=== PATIENT | female | born 1930 | race Caucasian/White ===

== ENCOUNTER 2017-06-07 18:43 | Inpatient (IN) | payer MEDICARE, OTHER ==
[2017-06-07] MEDS ORDERED: Levofloxacin/Dextrose 5%-Water 500 MG in Premix Bag 1 BAG IV ONE (21:21)
[2017-06-07] MEDS ORDERED: Sodium Chloride 0.9% 1,000 ML IV ONE (21:29)
--- NOTE | 2017-06-07 21:36 | EDM.PDOC ---
ED HPI GENERAL MEDICAL PROBLEM - General Chief Complaint: General Stated Complaint: AMBULANCE Time Seen by Provider: 06/07/17 19:05 Source of Information: Reports: Patient, EMS History Limitations: Reports: No Limitations - History of Present Illness INITIAL COMMENTS - FREE TEXT/NARRATIVE: ED via [facility]. Patient reports getting back to her chair and missed. Pain to right hip, not any different than chronic pain, notes more weak and shaky today than usual "just not feeling right", chills no fever. Chronic incontinence of stool and urine, hx frequent urinary tract infections. - Related Data Allergies Allergy/AdvReac Type Severity Reaction Status Date / Time meperidine HCl [From Demerol] Allergy Rash Verified 06/07/17 23:29 Home Meds: Home Meds Allopurinol [Zyloprim] 300 mg PO DAILY 05/02/16 [History] Aspirin 81 mg PO DAILY 05/02/16 [History] Cholecalciferol (Vitamin D3) [Vitamin D3] 2,000 unit PO DAILY 05/02/16 [History] Cyanocobalamin (Vitamin B-12) [Vitamin B-12] 100 mcg PO DAILY 05/02/16 [History] Ferrous Sulfate 1 tab PO DAILY 05/02/16 [History] Gabapentin [Neurontin] 200 mg PO BID 05/02/16 [History] Hydrochlorothiazide 25 mg PO ASDIRECTED 05/02/16 [History] Magnesium Oxide [Magnesium] 1 tab PO BID 05/02/16 [History] Multivit-Min/FA/Lycopene/Lut [Sentry Senior Tablet] 1 tab PO DAILY 05/02/16 [ History] Vitamin B Complex [B Complex] 1 tab PO DAILY 05/02/16 [History] amLODIPine Besylate [Amlodipine Besylate] 5 mg PO DAILY 05/02/16 [History] atorvaSTATin Calcium [Atorvastatin Calcium] 20 mg PO BEDTIME 05/02/16 [History] metFORMIN [Glucophage] 500 mg PO BID 05/02/16 [History] Insulin Detemir [Levemir] 15 unit SUBCUT BEDTIME 05/06/16 [History] Insulin Detemir [Levemir] 20 unit SUBCUT DAILY pen 05/06/16 [Rx] Lisinopril [Prinivil] 10 mg PO DAILY tablet 05/06/16 [Rx] Non-Formulary Medication [NF Drug] 0 each TOP ASDIRECTED PRN #0 each 05/06/16 [ Rx] Non-Formulary Medication [NF Drug] 0 each TOP BID each 05/06/16 [Rx] Vancomycin [Vancomycin 50 MG/ML Soln] 125 mg PO QID bottle 05/06/16 [Rx] metroNIDAZOLE 500 mg PO Q8H tablet 05/06/16 [Rx] Cefpodoxime Proxetil 200 mg PO BID #14 tablet 05/13/16 [Rx] Vancomycin [Vancomycin 50 MG/ML Soln] 125 mg PO QID 14 Days bottle 05/13/16 [Rx ] Past Medical History HEENT History: Reports: Impaired Vision Other HEENT History: wear glasses for distance Cardiovascular History: Reports: High Cholesterol, Hypertension Respiratory History: Reports: None Gastrointestinal History: Reports: None Genitourinary History: Reports: Urinary Incontinence, UTI, Recurrent REJOGGER History: Reports: None Musculoskeletal History: Reports: Gout, Osteoarthritis Neurological History: Reports: Neuropathy, Peripheral Psychiatric History: Reports: None Endocrine/Metabolic History: Reports: Diabetes, Type II, Obesity/BMI 30+ Hematologic History: Reports: Iron Deficiency Immunologic History: Reports: None Oncologic (Cancer) History: Reports: None Dermatologic History: Reports: None - Infectious Disease History Infectious Disease History: Reports: Chicken Pox, Measles, Mumps - Past Surgical History Head Surgeries/Procedures: Reports: None Social & Family History - Family History Family Medical History: Noncontributory - Tobacco Use Smoking Status *Q: Never Smoker Used Tobacco, but Quit: No Second Hand Smoke Exposure: No - Caffeine Use Caffeine Use: Reports: Coffee, Soda - Recreational Drug Use Recreational Drug Use: No ED ROS GENERAL - Review of Systems Review Of Systems: See Below Constitutional: Reports: Chills, Weakness, Decreased Appetite HEENT: Reports: No Symptoms Respiratory: Reports: Cough (ocassional dry) Cardiovascular: Reports: No Symptoms Endocrine: Reports: Fatigue GI/Abdominal: Reports: Diarrhea, Other (incontinent urine and stool, chronic. hx c-diff). Denies: Abdominal Pain : Reports: Incontinence. Denies: Flank Pain Musculoskeletal: Reports: Joint Pain (chronic) Skin: Reports: No Symptoms Neurological: Reports: No Symptoms Psychiatric: Reports: No Symptoms ED EXAM, GENERAL - Physical Exam Exam: See Below Exam Limited By: No Limitations General Appearance: Alert, Mild Distress Eye Exam: Bilateral Eye: EOMI, PERRL Ears: Normal External Exam Ear Exam: Bilateral Ear: TM normal Nose: Normal Inspection Throat/Mouth: Normal Inspection Head: Atraumatic, Normocephalic Neck: Normal Inspection Respiratory/Chest: No Respiratory Distress Cardiovascular: Normal Peripheral Pulses, Regular Rate, Rhythm GI/Abdominal: Normal Bowel Sounds, Soft, Non-Tender (Female) Exam: Other (rayo area red) Back Exam: Normal Inspection Extremities: Leg Pain (left above knee with palpation unchanged, good flexion extension. right hip with palpation, internal external roation without discomfort. ). No: Pallor, Redness Neurological: Alert Psychiatric: Normal Affect, Normal Mood Skin Exam: Warm, Dry, Intact, Normal Color Course - Vital Signs Last Recorded V/S: Last Vital Signs Temp 98.6 F 06/08/17 06:56 Pulse 87 06/08/17 06:56 Resp 20 06/08/17 06:56 BP 129/58 L 06/08/17 06:56 Pulse Ox 97 06/08/17 06:56 - Orders/Labs/Meds Orders: Active Orders 24 hr Category Date Time Status Glucose [Blood Glucose Check, Bedside] [RC] ONETIME Care 06/07/17 19:39 Active CULTURE BLOOD [BC] Stat Lab 06/07/17 19:58 Results Sodium Chloride 0.9% [Normal Saline] 1,000 ml Med 06/07/17 21:29 Active IV ONETIME Medication Orders Allopurinol (Zyloprim) 300 mg PO DAILY [facility] Amlodipine Besylate (Norvasc) 5 mg PO DAILY [facility] Aspirin (Aspirin) 81 mg PO DAILY [facility] Atorvastatin Calcium (Lipitor) 20 mg PO BEDTIME [facility] Cholecalciferol (Vitamin D3) 2,000 units PO DAILY [facility] Cyanocobalamin (Vitamin B12) 100 mcg PO DAILY [facility] Ferrous Sulfate (Ferrous Sulfate) 325 mg PO DAILY [facility] Gabapentin (Neurontin) 200 mg PO BID [facility] Heparin Sodium (Porcine) (Heparin Sodium) 5,000 units SUBCUT Q8HR [facility] Last Admin: 06/08/17 05:34 Dose: 5,000 units Hydrochlorothiazide (Hydrochlorothiazide) 25 mg PO ASDIRECTED [facility] Sodium Chloride (Normal Saline) 1,000 mls @ 75 mls/hr IV ONETIME ONE Stop: 06/08/17 10:48 Last Admin: 06/07/17 21:37 Dose: 75 mls/hr Insulin Aspart (Novolog) 0 unit SUBCUT QID STEPHANIE PRN Reason: Protocol Insulin Detemir (Levemir) 15 unit SUBCUT BEDTIME STEPHANIE Insulin Detemir (Levemir) 20 unit SUBCUT DAILY STEPHANIE Lisinopril (Prinivil) 10 mg PO DAILY STEPHANIE Magnesium Oxide (Magnesium Oxide) 375 mg PO BID STEPHANIE Multivitamins (Thera) 1 each PO DAILY [facility] Non-Formulary Medication (Cefpodoxime Proxetil) 200 mg PO BID STEPHANIE Nystatin/Triamcinolone Acetonide (Mycolog Oint) 1 gm TOP BID [facility] Ondansetron HCl (Zofran Odt) 4 mg PO Q6H PRN PRN Reason: nausea, able to take PO Labs: Laboratory Tests 06/07/17 06/07/17 06/07/17 Range/Units 19:28 19:58 19:58 WBC 10.6 H (5.0-10.0) 10^3/uL RBC 3.75 L (4.2-5.4) 10^6/uL Hgb 10.5 L (12.0-16.0) g/dL Hct 32.9 L (37.0-47.0) % MCV 87.7 D (80-100) fL MCH 28.0 (27.0-34.0) pg MCHC 31.9 L (33.0-35.0) g/dL Plt Count 280 D (150-450) 10^3/uL Neut % (Auto) 70.5 (42.2-75.2) % Lymph % (Auto) 22.8 (20.5-50.1) % [place] % (Auto) 6.3 (2-8) % Eos % (Auto) 0.2 L (1.0-3.0) % Baso % (Auto) 0.2 (0.0-1.0) % Sodium 130 L (135-145) mmol/L Potassium 4.6 (3.6-5.0) mmol/L Chloride 95 L (101-111) mmol/L Carbon Dioxide 24.0 (21.0-31.0) mmol/L Anion Gap 15.6 BUN 39 H (7-18) mg/dL Creatinine 1.4 H (0.6-1.3) mg/dL Est Cr Clr Drug Dosing 26.50 mL/min Estimated GFR (MDRD) 36 BUN/Creatinine Ratio 27.85 Glucose 176 H (74-105) mg/dL POC Glucose (83-110) mg/dl Lactic Acid (0.5-2.2) mmol/L Calcium 10.3 H (8.4-10.2) mg/dl Magnesium 1.6 L (1.8-2.5) mg/dL Total Bilirubin 1.0 (0.2-1.0) mg/dL AST 61 H (10-42) IU/L ALT 42 (10-60) IU/L Alkaline Phosphatase 91 (42-121) IU/L Troponin I 0.02 (0.00-0.02) ng/ml B-Natriuretic Peptide 132 H (0-100) pg/ml Total Protein 7.6 (6.7-8.2) g/dl Albumin 3.4 (3.2-5.5) g/dl Globulin 4.2 Albumin/Globulin Ratio 0.81 Urine Color Light yellow (YELLOW) Urine Appearance Turbid (CLEAR) Urine pH 6.0 (5.0-9.0) Ur Specific [place] 1.015 (1.005-1.030) Urine Protein 100 H (NEGATIVE) Urine Glucose (UA) Negative (NEGATIVE) Urine Ketones Negative (NEGATIVE) Urine Occult Blood Moderate H (NEGATIVE) Urine Nitrite Negative (NEGATIVE) Urine Bilirubin Negative (NEGATIVE) Urine Urobilinogen 0.2 (0.2-1.0) mg/dL Ur Leukocyte Esterase Moderate H (NEGATIVE) Urine RBC 50-75 H /HPF Urine WBC Semi-packed H (0-5/HPF) /HPF Ur Epithelial Cells Moderate H /HPF Amorphous Sediment Few (0/HPF) /HPF Urine Bacteria Many H (0-FEW/HPF) /HPF Urine Mucus Moderate H /LPF 06/07/17 06/07/17 Range/Units 19:58 19:58 WBC (5.0-10.0) 10^3/uL RBC (4.2-5.4) 10^6/uL Hgb (12.0-16.0) g/dL Hct (37.0-47.0) % MCV (80-100) fL MCH (27.0-34.0) pg MCHC (33.0-35.0) g/dL Plt Count (150-450) 10^3/uL Neut % (Auto) (42.2-75.2) % Lymph % (Auto) (20.5-50.1) % [place] % (Auto) (2-8) % Eos % (Auto) (1.0-3.0) % Baso % (Auto) (0.0-1.0) % Sodium (135-145) mmol/L Potassium (3.6-5.0) mmol/L Chloride (101-111) mmol/L Carbon Dioxide (21.0-31.0) mmol/L Anion Gap BUN (7-18) mg/dL Creatinine (0.6-1.3) mg/dL Est Cr Clr Drug Dosing mL/min Estimated GFR (MDRD) BUN/Creatinine Ratio Glucose (74-105) mg/dL POC Glucose 160 H (83-110) mg/dl Lactic Acid 1.2 (0.5-2.2) mmol/L Calcium (8.4-10.2) mg/dl Magnesium (1.8-2.5) mg/dL Total Bilirubin (0.2-1.0) mg/dL AST (10-42) IU/L ALT (10-60) IU/L Alkaline Phosphatase (42-121) IU/L Troponin I (0.00-0.02) ng/ml B-Natriuretic Peptide (0-100) pg/ml Total Protein (6.7-8.2) g/dl Albumin (3.2-5.5) g/dl Globulin Albumin/Globulin Ratio Urine Color (YELLOW) Urine Appearance (CLEAR) Urine pH (5.0-9.0) Ur Specific [place] (1.005-1.030) Urine Protein (NEGATIVE) Urine Glucose (UA) (NEGATIVE) Urine Ketones (NEGATIVE) Urine Occult Blood (NEGATIVE) Urine Nitrite (NEGATIVE) Urine Bilirubin (NEGATIVE) Urine Urobilinogen (0.2-1.0) mg/dL Ur Leukocyte Esterase (NEGATIVE) Urine RBC /HPF Urine WBC (0-5/HPF) /HPF Ur Epithelial Cells /HPF Amorphous Sediment (0/HPF) /HPF Urine Bacteria (0-FEW/HPF) /HPF Urine Mucus /LPF Meds: Medications Generic Name Dose Route Start Last Admin Trade Name Freq PRN Reason Stop Dose Admin Allopurinol 300 mg 06/08/17 09:00 Zyloprim PO DAILY STEPHANIE Amlodipine Besylate 5 mg 06/08/17 09:00 Norvasc PO DAILY [facility] Aspirin 81 mg 06/08/17 09:00 Aspirin PO DAILY [facility] Atorvastatin Calcium 20 mg 06/08/17 21:00 Lipitor PO BEDTIME [facility] Cholecalciferol 2,000 units 06/08/17 09:00 Vitamin D3 PO DAILY [facility] Cyanocobalamin 100 mcg 06/08/17 09:00 Vitamin B12 PO DAILY [facility] Ferrous Sulfate 325 mg 06/08/17 09:00 Ferrous Sulfate PO DAILY [facility] Gabapentin 200 mg 06/08/17 09:00 Neurontin PO BID [facility] Heparin Sodium (Porcine) 5,000 units 06/08/17 06:00 06/08/17 05:34 Heparin Sodium SUBCUT 5,000 units Q8HR [facility] Administration Hydrochlorothiazide 25 mg 06/08/17 00:15 Hydrochlorothiazide PO ASDIRECTED [facility] Sodium Chloride 1,000 mls @ 75 mls/hr 06/07/17 21:29 06/07/17 21:37 Normal Saline IV 06/08/17 10:48 75 mls/hr ONETIME ONE Administration Insulin Aspart 0 unit 06/08/17 09:00 Novolog SUBCUT QID [facility] Protocol Insulin Detemir 15 unit 06/08/17 21:00 Levemir SUBCUT BEDTIME [facility] Insulin Detemir 20 unit 06/08/17 09:00 Levemir SUBCUT DAILY [facility] Lisinopril 10 mg 06/08/17 09:00 Prinivil PO DAILY [facility] Magnesium Oxide 375 mg 06/08/17 09:00 Magnesium Oxide PO BID [facility] Multivitamins 1 each 06/08/17 09:00 Thera PO DAILY [facility] Non-Formulary Medication 200 mg 06/08/17 09:00 Cefpodoxime Proxetil PO BID [facility] Nystatin/Triamcinolone Acetonide 1 gm 06/08/17 09:00 Mycolog Oint TOP BID [facility] Ondansetron HCl 4 mg 06/07/17 23:55 Zofran Odt PO Q6H PRN nausea, able to take PO Discontinued Medications Generic Name Dose Route Start Last Admin Trade Name Freq PRN Reason Stop Dose Admin Levofloxacin/Dextrose 500 mg/ 100 mls @ 100 mls/hr 06/07/17 21:21 06/07/17 21 :38 Premix IV 06/07/17 22:20 100 mls/hr ONETIME ONE Administration - Re-Assessments/Exams Free Text/Narrative Re-Assessment/Exam: 06/07/17 21:[address] Qiu, Will admit, UTI, Diabetic, recent fall at home Departure - Departure Time of Disposition: 05:00 Disposition: Admitted As Inpatient 65 Condition: Fair Clinical Impression: Hyponatremia, Hx of Clostridium difficile infection UTI (urinary tract infection) Qualifiers: Urinary tract infection type: site unspecified Hematuria presence: without hematuria Qualified Code(s): N39.0 - Urinary tract infection, site not specified Diabetes Qualifiers: Diabetes mellitus type: type 2 Diabetes mellitus complication status: without complication Diabetes mellitus intermediate frame tender insulin use: with custodial use Qualified Code(s): E11.9 - Type 2 diabetes mellitus without complications - Discharge Information - My Orders Last 24 Hours: My Active Orders 06/07/17 19:39 Glucose [Blood Glucose Check, Bedside] [RC] ONETIME 06/07/17 19:58 CULTURE BLOOD [BC] Stat 06/07/17 21:29 Sodium Chloride 0.9% [Normal Saline] 1,000 ml IV ONETIME - Assessment/Plan Last 24 Hours: My Active Orders 06/07/17 19:39 Glucose [Blood Glucose Check, Bedside] [RC] ONETIME 06/07/17 19:58 CULTURE BLOOD [BC] Stat 06/07/17 21:29 Sodium Chloride 0.9% [Normal Saline] 1,000 ml IV ONETIME
[2017-06-07] MEDS ORDERED: Ondansetron 4 MG Tab.DIS PO PRN (23:55)
--- NOTE | 2017-06-08 04:33 | HP ---
CHIEF COMPLAINT: Increasing weakness, tiredness, chills, and rigors. HISTORY OF PRESENTING ILLNESS: Mrs. Caty Lopez is an 86-year-old female with medical history significant for hypertension, hyperlipidemia, type 2 diabetes mellitus, incontinence to urine and stool these days, history of diverticulosis of the colon, diabetes complicated by neuropathy, B12 deficiency, recurrent urinary tract infections, and C. difficile colitis in the past, who presented to the ER with complaints of having a fall at home, and further evaluation showed evidence of urinary tract infection needing admission to the hospital. At this time, the patient claims that she has been having this chills and rigors for the last 2 to 3 days, and earlier this evening, the patient felt very weak and tired and also with chills, and she was at the table while she was trying to sit down. She slipped and gradually sat on the ground and called for help. Her was there along with her and helped her up. At this time, she denies any complaints of chest pain. No shortness of breath. No abdominal pain. No nausea. No vomiting. No diarrhea. No headache. No changes in the vision. No numbness or tingling to her extremities. She denies any increasing weakness to her extremities, but complains of having chills and rigors in the last 2 to 3 days. The patient denied any history of chest pains on exertion. Has mild dyspnea on exertion. No history of orthopnea or paroxysmal nocturnal dyspnea. The patient denied any history of hematemesis, hematochezia, or melanotic stools. Normal bowel and bladder habits otherwise. REVIEW OF SYSTEMS: A complete review of systems including skin, ears, nose, and throat, cardiovascular system, respiratory system, gastrointestinal system, genitourinary system, endocrinology, rheumatology, allergy, immunology, and constitutional were all evaluated and were negative except for the above-said notes. PAST MEDICAL HISTORY: Significant for hypertension, hyperlipidemia, type 2 diabetes mellitus, diabetes complicated by neuropathy, obesity, recurrent urinary tract infections, incontinence to stool and urine, C. difficile colitis, colonic diverticulosis, B12 deficiency, and neurogenic bladder. PAST SURGICAL HISTORY: Significant for colonoscopy and bladder cystoscopy. FAMILY HISTORY: None significant. SOCIAL HISTORY: History of smoking tobacco in the past, but quit smoking back in 1969. No history of alcohol intake. ALLERGIC HISTORY: The patient noted to have allergies to Demerol, which causes rash. MEDICATIONS: Include: 1. Levemir 15 units. 2. Nystatin cream. 3. Allopurinol 300 mg tablet daily. 4. Hydrochlorothiazide 25 mg daily. 5. Norvasc 5 mg daily. 6. Lisinopril 10 mg daily. 7. Metformin 500 mg 2 times daily. 8. B-Complex. 9. Multivitamin. 10.Ferrous sulfate 325 mg. 11.Aspirin 81 mg daily. PHYSICAL EXAMINATION: Vital Signs: Temperature of 97.8, pulse of 106, blood pressure 127/47, respiratory rate of 16, and saturating at 96% on room air. General Appearance: The patient is well oriented to time, place, and person. Follows commands spontaneously. Cardiovascular System: S1 and S2 heard with normal intensity. No gallops. Respiratory System: Clear to auscultation bilaterally. No wheeze. No crepitations. Abdomen: Soft. Bowel sounds positive. Nontender. No rigidity. Extremities: No edema in bilateral lower extremities. Neurologic: No gross focal neurological deficit. LABORATORY DATA: WBC 10.6, hemoglobin 10.5, hematocrit 32.9, and platelet count 280. Sodium 130, potassium 4.6, chloride 95, bicarb 24, BUN 39, creatinine 1.4, and glucose 176. Lactic acid 1.2. Calcium 10.3. Magnesium 1.6. AST 61 and ALT 42. BNP 132. Urinalysis: Moderate leukocyte esterase, negative for nitrites, moderate rbc 50 to 75, moderate epithelial cells, and many bacteria. ASSESSMENT: 1. Possible urinary tract infection. 2. Hypertension. 3. Type 2 diabetes mellitus. 4. Presyncopal episode. 5. Urinary incontinence and stool incontinence. 6. History of Clostridium difficile colitis in the past. 7. B12 deficiency. 8. Hyponatremia. 9. Hypercalcemia. 10.Hypomagnesemia. PLAN: 1. Urinary tract infection. The patient presents with chills and rigors for the last 3 days and had a presyncopal episode without any loss of consciousness. Urinalysis is suggestive of possible UTI. We will obtain the urine culture and blood culture. At this time, we will start her on IV antibiotics. She is started on IV Levaquin in the ER. We will continue the same and titrate the antibiotics once we have the culture reports available. 2. Acute hyponatremia. The patient's sodium is down to 130. We will have her on IV normal saline at 75 mL/h. Recheck a basic metabolic panel in a.m. 3. Hypercalcemia. The patient's calcium is noted to be at 10.3. Recheck a calcium level in a.m. and an ionized calcium level in a.m. 4. Hypomagnesemia. We will replace with oral magnesium. 5. Type 2 diabetes mellitus. The patient noted to be on insulin regimen. Check her fingersticks with each meals. Have her on supplemental scale insulin. Avoid any hypoglycemic episodes. Have her on hypoglycemic protocol. 6. Hypertension. The patient's blood pressure seems to be in acceptable range. Continue with current antihypertensive medications. We will closely follow. Try to avoid any hypotensive episodes. 7. Deep vein thrombosis prophylaxis. We will have her on heparin 5000 units subcutaneously q.8 hourly for DVT prophylaxis. 8. Code status: The patient wants to be full code. Discussed with ER physician regarding the plan of care. Discussed with the patient regarding the plan of care. Reviewed the labs and medications. Reviewed the old charts. [facility] /[id number] MTDPatricia
[2017-06-08] MEDS: Heparin Sodium 5,000 Units/ML Vial SUBCUT SCH ×3 (05:34→22:13)
[2017-06-08] MEDS: Cholecalciferol (Vitamin D3) 400 Unit Tab PO SCH (08:41)
[2017-06-08] MEDS: Multivitamins,Therapeutic Tab PO SCH (08:41)
[2017-06-08] MEDS: amLODIPine 5 MG Tab PO SCH (08:41)
[2017-06-08] MEDS: Cyanocobalamin (Vitamin B12) 100 MCG Tab PO SCH (08:41)
[2017-06-08] MEDS: Ferrous Sulfate 325 MG Tab PO SCH (08:42)
[2017-06-08] MEDS: Insulin Aspart 100 Units/ML 3 ML Pen SUBCUT SCH ×4 (08:42→21:19)
[2017-06-08] MEDS: Gabapentin 100 MG Cap PO SCH ×2 (08:42→20:26)
[2017-06-08] MEDS: Aspirin 81 MG Tab.Chew PO SCH (08:42)
[2017-06-08] MEDS: Lisinopril 10 MG Tab PO SCH (08:42)
[2017-06-08] MEDS: Insulin Detemir 100 Units/ML 3 ML Pen SUBCUT SCH ×2 (08:43→21:18)
[2017-06-08] MEDS: Allopurinol 300 MG Tab PO SCH (08:47)
[2017-06-08] MEDS ORDERED: CEFPODOXIME PROXETIL 200 MG PO SCH (09:00)
[2017-06-08] MEDS: [UNRECOGNIZED DRUG - REMARK] TOP SCH ×2 (12:07→20:21)
--- NOTE | 2017-06-08 13:31 | PN ---
DATE: 06/08/2017 HISTORY OF PRESENT ILLNESS: Mrs. Jessica Loomis is an 86-year-old female with medical history significant for hypertension, type 2 diabetes mellitus, incontinence to urine and stool, history of diverticulosis, C. difficile colitis in the past, recurrent urinary tract infection, was admitted to the hospital after having a fall and complaints of chills and rigors in the last few days and had evidence of urinary tract infection. For the last 24 hours, the patient was treated with IV fluids. IV antibiotics. She denies any further chills or fevers at this time. She denies any chest pain. No shortness of breath. No abdominal pain. No nausea. No vomiting. No diarrhea. REVIEW OF SYSTEMS: Cardiovascular, respiratory, gastrointestinal, neurology, constitutional were all evaluated. PHYSICAL EXAMINATION: Vital Signs: Temperature of 97.2, pulse of 67, blood pressure of 129/58, respiratory rate of 20, saturating at 97% on room air. General Appearance: The patient is well oriented to time, place, and person. Follows commands spontaneously. Cardiovascular System: S1, S2 heard with normal intensity. No gallops. Respiratory System: Clear to auscultation bilaterally. No wheeze. No crepitations. Abdomen: Soft. Bowel sounds positive. Nontender. No rigidity. Extremities: No edema in bilateral lower extremities. Neurology: No gross focal neurological deficit. MEDICATIONS: Reviewed. 1. Continue with allopurinol 300 mg daily. 2. Norvasc 5 mg daily. 3. Aspirin 81 mg daily. 4. Lipitor 20 mg at bedtime. 5. Vitamin D3 2000 units daily. 6. Vitamin B12 100 mcg daily. 7. Ferrous sulfate 325 mg daily. 8. Neurontin 200 mg twice a day. 9. Heparin 5000 units subcutaneously q.8 hourly. 10.Hydrochlorothiazide 25 mg every 48 hours. 11.Levemir 20 units in a.m. and 15 units at bedtime. 12.Lisinopril 10 mg daily. 13.Milk of magnesia 375 mg twice a day. 14.Multivitamin 1 tablet daily. 15.Zofran 4 mg every 6 hours as needed. LABORATORY DATA: Reviewed. WBC 9.5, hemoglobin 9.8, hematocrit 31.2, platelet count 282. Sodium 132, potassium 3.9, chloride 100, bicarb 22, BUN 34, creatinine 1.2, glucose 187. ASSESSMENT: 1. Urinary tract infection. 2. Generalized debility. 3. Hypertension. 4. Type 2 diabetes mellitus. 5. Presyncopal episode. 6. History of chronic urinary incontinence and stool incontinence with neurogenic bladder. 7. Diabetes, complicated by neuropathy. 8. History of Clostridium difficile colitis in the past. 9. Hyponatremia. PLAN: 1. Urinary tract infection. The patient was admitted with urinary tract infection and still awaiting for culture reports. The patient did receive IV Levaquin. We will resume IV Levaquin at this time and we will titrate the antibiotics once we have the culture reports available. 2. Acute hyponatremia. The patient was noted to have low sodium at 130 at the time of admission, improved to 132 with IV normal saline. We will closely follow. 3. Type 2 diabetes mellitus. Check her fingersticks with each meals, have her on supplemental scale insulin as needed for additional coverage of her blood glucose, try to avoid any hypoglycemic episodes. 4. Hypomagnesium. The patient is currently on magnesium oxide. Continue the same. We will check a magnesium in a.m. 5. Hypercalcemia. The patient was noted to have elevated calcium up to 10.3 at the time of admission, improved with IV hydration to 9.8. 6. Deep venous thrombosis prophylaxis. Continue with heparin for deep venous thrombosis prophylaxis. 7. Hypertension. The patient's blood pressure seems to be well controlled. Continue with current antihypertensive medications. 8. We will have Physical Therapy and Occupational Therapy to evaluate and treat the patient secondary to generalized debility. [facility] /[id number]
[2017-06-08] MEDS: Levofloxacin/Dextrose 5%-Water 250 MG in Premix Bag 1 BAG IV SCH (20:21)
[2017-06-08] MEDS: atorvaSTATin 20 MG Tab PO SCH (20:27)
[2017-06-09] MEDS: Heparin Sodium 5,000 Units/ML Vial SUBCUT SCH ×3 (05:47→22:11)
[2017-06-09] MEDS: Lisinopril 10 MG Tab PO SCH (09:33)
[2017-06-09] MEDS: Cholecalciferol (Vitamin D3) 400 Unit Tab PO SCH (09:33)
[2017-06-09] MEDS: Gabapentin 100 MG Cap PO SCH ×2 (09:33→20:19)
[2017-06-09] MEDS: Ferrous Sulfate 325 MG Tab PO SCH (09:33)
[2017-06-09] MEDS: Cyanocobalamin (Vitamin B12) 100 MCG Tab PO SCH (09:33)
[2017-06-09] MEDS: amLODIPine 5 MG Tab PO SCH (09:33)
[2017-06-09] MEDS: Multivitamins,Therapeutic Tab PO SCH (09:34)
[2017-06-09] MEDS: Aspirin 81 MG Tab.Chew PO SCH (09:34)
[2017-06-09] MEDS: Allopurinol 300 MG Tab PO SCH (09:34)
[2017-06-09] MEDS: Insulin Detemir 100 Units/ML 3 ML Pen SUBCUT SCH ×2 (09:34→21:18)
[2017-06-09] MEDS: Insulin Aspart 100 Units/ML 3 ML Pen SUBCUT SCH ×4 (09:35→21:19)
[2017-06-09] MEDS: [UNRECOGNIZED DRUG - REMARK] TOP SCH ×2 (09:36→21:18)
[2017-06-09] MEDS: Hydrochlorothiazide 25 MG Tab PO SCH (09:40)
--- NOTE | 2017-06-09 10:47 | PCM.PN ---
- General Info Date of Service: 06/09/17 Admission Dx/Problem (Free Text): Complicated UTI Subjective Update: Patient stated that she is feeling better. She is still generally weak but better. She denies nausea, vomiting, chest pain, shortness breath, abdominal pain, dysuria, urinary frequency. Patient had blood in her urine today. Patient stated that she has been having this issue for the last few years. She states she gets blood in her urine almost every other month. She has been following up on that with her primary care provider and saw enterprise software engineer 2 weeks ago. She told me that her primary care provider Will refer her to see urologist after being discharged. Patient declined genital and rectal exam. She denies in the stool or black stool. - Review of Systems General: Reports: No Symptoms HEENT: Reports: No Symptoms Pulmonary: Reports: No Symptoms Cardiovascular: Reports: No Symptoms - Patient Data Vitals - Most Recent: Last Vital Signs Temp 36.3 C 06/09/17 07:28 Pulse 72 06/09/17 07:28 Resp 20 06/09/17 07:28 BP 119/50 L 06/09/17 09:33 Pulse Ox 96 06/09/17 07:28 Weight - Most Recent: 80.853 kg I&O - Last 24 Hours: Intake & Output 06/08/17 06/09/17 06/09/17 22:59 06:59 14:59 Intake Total 200 175 Balance 200 175 Lab Results Last 24 Hours: Laboratory Results - last 24 hr 06/08/17 06/08/17 06/08/17 Range/Units 10:50 17:11 21:01 WBC (5.0-10.0) 10^3/uL RBC (4.2-5.4) 10^6/uL Hgb (12.0-16.0) g/dL Hct (37.0-47.0) % MCV (80-100) fL MCH (27.0-34.0) pg MCHC (33.0-35.0) g/dL Plt Count (150-450) 10^3/uL Sodium (135-145) mmol/L Potassium (3.6-5.0) mmol/L Chloride (101-111) mmol/L Carbon Dioxide (21.0-31.0) mmol/L Anion Gap BUN (7-18) mg/dL Creatinine (0.6-1.3) mg/dL Est Cr Clr Drug Dosing mL/min Estimated GFR (MDRD) Glucose (74-105) mg/dL POC Glucose 260 H 205 H 211 H (83-110) mg/dl Calcium (8.4-10.2) mg/dl 06/09/17 06/09/17 06/09/17 Range/Units 01:40 06:34 06:34 WBC 9.4 (5.0-10.0) 10^3/uL RBC 3.43 L (4.2-5.4) 10^6/uL Hgb 9.4 L (12.0-16.0) g/dL Hct 30.2 L (37.0-47.0) % MCV 88.0 (80-100) fL MCH 27.4 (27.0-34.0) pg MCHC 31.1 L (33.0-35.0) g/dL Plt Count 267 (150-450) 10^3/uL Sodium 132 L (135-145) mmol/L Potassium 3.9 (3.6-5.0) mmol/L Chloride 101 (101-111) mmol/L Carbon Dioxide 22.0 (21.0-31.0) mmol/L Anion Gap 12.9 BUN 30 H (7-18) mg/dL Creatinine 1.2 (0.6-1.3) mg/dL Est Cr Clr Drug Dosing 30.92 mL/min Estimated GFR (MDRD) 42 Glucose 240 H (74-105) mg/dL POC Glucose 246 H (83-110) mg/dl Calcium 9.6 (8.4-10.2) mg/dl Amadou Results Last 24 Hours: Microbiology 06/08/17 00:01 Urine Culture - Preliminary Urine, Voided Med Orders - Current: Current Medications Allopurinol (Zyloprim) 300 mg PO DAILY [facility] Last Admin: 06/09/17 09:34 Dose: 300 mg Amlodipine Besylate (Norvasc) 5 mg PO DAILY [facility] Last Admin: 06/09/17 09:33 Dose: 5 mg Aspirin (Aspirin) 81 mg PO DAILY [facility] Last Admin: 06/09/17 09:34 Dose: 81 mg Atorvastatin Calcium (Lipitor) 20 mg PO BEDTIME [facility] Last Admin: 06/08/17 20:27 Dose: 20 mg Cholecalciferol (Vitamin D3) 2,000 units PO DAILY [facility] Last Admin: 06/09/17 09:33 Dose: 2,000 units Cyanocobalamin (Vitamin B12) 100 mcg PO DAILY [facility] Last Admin: 06/09/17 09:33 Dose: 100 mcg Ferrous Sulfate (Ferrous Sulfate) 325 mg PO DAILY [facility] Last Admin: 06/09/17 09:33 Dose: 325 mg Gabapentin (Neurontin) 200 mg PO BID [facility] Last Admin: 06/09/17 09:33 Dose: 200 mg Heparin Sodium (Porcine) (Heparin Sodium) 5,000 units SUBCUT Q8HR [facility] Last Admin: 06/09/17 05:47 Dose: 5,000 units Hydrochlorothiazide (Hydrochlorothiazide) 25 mg PO Q48H [facility] Last Admin: 06/09/17 09:40 Dose: 25 mg Levofloxacin/Dextrose 250 mg/ (Premix) 50 mls @ 50 mls/hr IV Q24H [facility] Last Admin: 06/08/17 20:21 Dose: 50 mls/hr Insulin Aspart (Novolog) 0 unit SUBCUT QID [facility] PRN Reason: Protocol Last Admin: 06/09/17 09:35 Dose: 2 unit Insulin Detemir (Levemir) 15 unit SUBCUT BEDTIME [facility] Last Admin: 06/08/17 21:18 Dose: 15 units Insulin Detemir (Levemir) 20 unit SUBCUT DAILY [facility] Last Admin: 06/09/17 09:34 Dose: 20 units Lisinopril (Prinivil) 10 mg PO DAILY [facility] Last Admin: 06/09/17 09:33 Dose: 10 mg Magnesium Oxide (Magnesium Oxide) 375 mg PO BID [facility] Last Admin: 06/09/17 09:34 Dose: 375 mg Multivitamins (Thera) 1 each PO DAILY [facility] Last Admin: 06/09/17 09:34 Dose: 1 each Nystatin/Zinc Oxide/Hydrocerin Compound* *Non-Form Med 0 each TOP BID [facility] Last Admin: 06/09/17 09:36 Dose: 1 each Ondansetron HCl (Zofran Odt) 4 mg PO Q6H PRN PRN Reason: nausea, able to take PO Discontinued Medications Levofloxacin/Dextrose 500 mg/ (Premix) 100 mls @ 100 mls/hr IV ONETIME ONE Stop: 06/07/17 22:20 Last Admin: 06/07/17 21:38 Dose: 100 mls/hr Sodium Chloride (Normal Saline) 1,000 mls @ 75 mls/hr IV ONETIME ONE Stop: 06/08/17 10:48 Last Admin: 06/07/17 21:37 Dose: 75 mls/hr Non-Formulary Medication (Cefpodoxime Proxetil) 200 mg PO BID [facility] Last Admin: 06/08/17 16:14 Dose: Not Given Nystatin/Triamcinolone Acetonide (Mycolog Oint) 1 gm TOP BID [facility] Last Admin: 06/08/17 08:47 Dose: 1 applic - Problem List & Annotations (1) Hematuria SNOMED Code(s): 11398578 Code(s): R31.9 - HEMATURIA, UNSPECIFIED Status: Acute Current Visit: Yes (2) UTI (urinary tract infection) SNOMED Code(s): 04861040 Code(s): N39.0 - URINARY TRACT INFECTION, SITE NOT SPECIFIED Status: Acute Priority: Medium Current Visit: Yes Qualifiers: Urinary tract infection type: site unspecified Hematuria presence: without hematuria Qualified Code(s): N39.0 - Urinary tract infection, site not specified (3) Diabetes SNOMED Code(s): 48256943 Code(s): E11.9 - TYPE 2 DIABETES MELLITUS WITHOUT COMPLICATIONS Status: Chronic Priority: Low Current Visit: Yes Qualifiers: Diabetes mellitus type: type 2 Diabetes mellitus complication status: without complication Diabetes mellitus snf insulin use: with ferry terminal supervisor use Qualified Code(s): E11.9 - Type 2 diabetes mellitus without complications ; Z79.4 - alf (current) use of insulin; Z79.4 - alf (current) use of insulin; Z79.4 - alf (current) use of insulin; Z79.4 - tank terminal gauger ( current) use of insulin (4) Bacteremia SNOMED Code(s): 7953568 Code(s): R78.81 - BACTEREMIA Status: Acute Priority: Medium Current Visit: No (5) Weakness SNOMED Code(s): 36277192 Code(s): R53.1 - WEAKNESS Status: Acute Priority: High Current Visit: No - Problem List Review Problem List Initiated/Reviewed/Updated: Yes - My Orders Last 24 Hours: My Active Orders 06/10/17 05:11 BASIC METABOLIC PANEL,BMP [CHEM] AM CBC WITH AUTO DIFF [HEME] AM - Plan Plan:: Impression Next 2-year-old female with the history of chronic incontinence presented with generalized weakness and diagnosed was completed UTI. Urine culture reported gram-negative rods Blood culture reported gram-positive cocci in cluster Plan -Continue on Levaquin -Awaiting urine and blood culture results -Continue physical therapy -Follow up as outpatient for her gross hematuria -Adjust insulin regimen from low sliding scale regimen to moderate sliding scale regimen -Repeat labs tomorrow Continue heparin for DVT prophylaxis
[2017-06-09] MEDS ORDERED: Sodium Chloride 0.9% 10 ML Syringe FLUSH PRN (12:13)
[2017-06-09] MEDS: atorvaSTATin 20 MG Tab PO SCH (20:19)
[2017-06-09] MEDS: Levofloxacin/Dextrose 5%-Water 250 MG in Premix Bag 1 BAG IV SCH (20:22)
[2017-06-10] MEDS: Heparin Sodium 5,000 Units/ML Vial SUBCUT SCH ×3 (05:44→21:22)
[2017-06-10] MEDS: Allopurinol 300 MG Tab PO SCH (09:05)
[2017-06-10] MEDS: Multivitamins,Therapeutic Tab PO SCH (09:05)
[2017-06-10] MEDS: Lisinopril 10 MG Tab PO SCH (09:05)
[2017-06-10] MEDS: Cyanocobalamin (Vitamin B12) 100 MCG Tab PO SCH (09:05)
[2017-06-10] MEDS: Aspirin 81 MG Tab.Chew PO SCH (09:05)
[2017-06-10] MEDS: Ferrous Sulfate 325 MG Tab PO SCH (09:05)
[2017-06-10] MEDS: Cholecalciferol (Vitamin D3) 400 Unit Tab PO SCH (09:06)
[2017-06-10] MEDS: amLODIPine 5 MG Tab PO SCH (09:06)
[2017-06-10] MEDS: Insulin Aspart 100 Units/ML 3 ML Pen SUBCUT SCH ×4 (09:07→21:22)
[2017-06-10] MEDS: Insulin Detemir 100 Units/ML 3 ML Pen SUBCUT SCH ×2 (09:07→21:23)
[2017-06-10] MEDS: [UNRECOGNIZED DRUG - REMARK] TOP SCH ×2 (09:08→20:32)
[2017-06-10] MEDS: Gabapentin 100 MG Cap PO SCH ×2 (09:13→20:29)
--- NOTE | 2017-06-10 10:40 | PCM.PN ---
- General Info Date of Service: 06/10/17 Admission Dx/Problem (Free Text): Complicated UTI Subjective Update: Patient stated that today is the first time she feels better. She is still generally weak but better. she says she is 50% back to her old self energy. She denies nausea, vomiting, chest pain, shortness breath, abdominal pain, dysuria, urinary frequency. Patient did not have hematuria since yesterday. - Patient Data Vitals - Most Recent: Last Vital Signs Temp 36.2 C 06/10/17 07:00 Pulse 89 06/10/17 07:00 Resp 20 06/10/17 07:00 BP 135/54 L 06/10/17 09:06 Pulse Ox 97 06/10/17 07:00 Weight - Most Recent: 80.853 kg I&O - Last 24 Hours: Intake & Output 06/09/17 06/10/17 06/10/17 22:59 06:59 14:59 Intake Total 350 Balance 350 Lab Results Last 24 Hours: Laboratory Results - last 24 hr 06/09/17 06/09/17 06/09/17 Range/Units 07:43 10:55 17:09 WBC (5.0-10.0) 10^3/uL RBC (4.2-5.4) 10^6/uL Hgb (12.0-16.0) g/dL Hct (37.0-47.0) % MCV (80-100) fL MCH (27.0-34.0) pg MCHC (33.0-35.0) g/dL Plt Count (150-450) 10^3/uL Neut % (Auto) (42.2-75.2) % Lymph % (Auto) (20.5-50.1) % [place] % (Auto) (2-8) % Eos % (Auto) (1.0-3.0) % Baso % (Auto) (0.0-1.0) % Sodium (135-145) mmol/L Potassium (3.6-5.0) mmol/L Chloride (101-111) mmol/L Carbon Dioxide (21.0-31.0) mmol/L Anion Gap BUN (7-18) mg/dL Creatinine (0.6-1.3) mg/dL Est Cr Clr Drug Dosing mL/min Estimated GFR (MDRD) Glucose (74-105) mg/dL POC Glucose 216 H 326 H 174 H (83-110) mg/dl Calcium (8.4-10.2) mg/dl 06/09/17 06/10/17 06/10/17 Range/Units 21:11 05:35 05:35 WBC 10.6 H (5.0-10.0) 10^3/uL RBC 3.44 L (4.2-5.4) 10^6/uL Hgb 9.7 L (12.0-16.0) g/dL Hct 30.4 L (37.0-47.0) % MCV 88.4 (80-100) fL MCH 28.2 (27.0-34.0) pg MCHC 31.9 L (33.0-35.0) g/dL Plt Count 285 (150-450) 10^3/uL Neut % (Auto) 50.4 (42.2-75.2) % Lymph % (Auto) 42.2 (20.5-50.1) % [place] % (Auto) 5.9 (2-8) % Eos % (Auto) 1.2 (1.0-3.0) % Baso % (Auto) 0.3 (0.0-1.0) % Sodium 132 L (135-145) mmol/L Potassium 4.3 (3.6-5.0) mmol/L Chloride 100 L (101-111) mmol/L Carbon Dioxide 23.0 (21.0-31.0) mmol/L Anion Gap 13.3 BUN 30 H (7-18) mg/dL Creatinine 1.2 (0.6-1.3) mg/dL Est Cr Clr Drug Dosing 30.92 mL/min Estimated GFR (MDRD) 42 Glucose 229 H (74-105) mg/dL POC Glucose 236 H (83-110) mg/dl Calcium 9.9 (8.4-10.2) mg/dl 06/10/17 Range/Units 07:47 WBC (5.0-10.0) 10^3/uL RBC (4.2-5.4) 10^6/uL Hgb (12.0-16.0) g/dL Hct (37.0-47.0) % MCV (80-100) fL MCH (27.0-34.0) pg MCHC (33.0-35.0) g/dL Plt Count (150-450) 10^3/uL Neut % (Auto) (42.2-75.2) % Lymph % (Auto) (20.5-50.1) % [place] % (Auto) (2-8) % Eos % (Auto) (1.0-3.0) % Baso % (Auto) (0.0-1.0) % Sodium (135-145) mmol/L Potassium (3.6-5.0) mmol/L Chloride (101-111) mmol/L Carbon Dioxide (21.0-31.0) mmol/L Anion Gap BUN (7-18) mg/dL Creatinine (0.6-1.3) mg/dL Est Cr Clr Drug Dosing mL/min Estimated GFR (MDRD) Glucose (74-105) mg/dL POC Glucose 248 H (83-110) mg/dl Calcium (8.4-10.2) mg/dl Amadou Results Last 24 Hours: Microbiology 06/08/17 00:01 Urine Culture - Final Urine, Voided Klebsiella Oxytoca Med Orders - Current: Current Medications Allopurinol (Zyloprim) 300 mg PO DAILY [facility] Last Admin: 06/10/17 09:05 Dose: 300 mg Amlodipine Besylate (Norvasc) 5 mg PO DAILY [facility] Last Admin: 06/10/17 09:06 Dose: 5 mg Aspirin (Aspirin) 81 mg PO DAILY [facility] Last Admin: 06/10/17 09:05 Dose: 81 mg Atorvastatin Calcium (Lipitor) 20 mg PO BEDTIME [facility] Last Admin: 06/09/17 20:19 Dose: 20 mg Cholecalciferol (Vitamin D3) 2,000 units PO DAILY [facility] Last Admin: 06/10/17 09:06 Dose: 2,000 units Cyanocobalamin (Vitamin B12) 100 mcg PO DAILY [facility] Last Admin: 06/10/17 09:05 Dose: 100 mcg Ferrous Sulfate (Ferrous Sulfate) 325 mg PO DAILY [facility] Last Admin: 06/10/17 09:05 Dose: 325 mg Gabapentin (Neurontin) 200 mg PO BID [facility] Last Admin: 06/10/17 09:13 Dose: 200 mg Heparin Sodium (Porcine) (Heparin Sodium) 5,000 units SUBCUT Q8HR [facility] Last Admin: 06/10/17 05:44 Dose: 5,000 units Hydrochlorothiazide (Hydrochlorothiazide) 25 mg PO Q48H [facility] Last Admin: 06/09/17 09:40 Dose: 25 mg Levofloxacin/Dextrose 250 mg/ (Premix) 50 mls @ 50 mls/hr IV Q24H [facility] Last Admin: 06/09/17 20:22 Dose: 50 mls/hr Insulin Aspart (Novolog) 0 unit SUBCUT QID [facility] PRN Reason: Protocol Last Admin: 06/10/17 09:07 Dose: 4 unit Insulin Detemir (Levemir) 15 unit SUBCUT BEDTIME [facility] Last Admin: 06/09/17 21:18 Dose: 15 units Insulin Detemir (Levemir) 20 unit SUBCUT DAILY [facility] Last Admin: 06/10/17 09:07 Dose: 20 units Lisinopril (Prinivil) 10 mg PO DAILY [facility] Last Admin: 06/10/17 09:05 Dose: 10 mg Magnesium Oxide (Magnesium Oxide) 375 mg PO BID [facility] Last Admin: 06/10/17 09:05 Dose: 375 mg Multivitamins (Thera) 1 each PO DAILY [facility] Last Admin: 06/10/17 09:05 Dose: 1 each Nystatin/Zinc Oxide/Hydrocerin Compound* *Non-Form Med 0 each TOP BID [facility] Last Admin: 06/10/17 09:08 Dose: 1 each Ondansetron HCl (Zofran Odt) 4 mg PO Q6H PRN PRN Reason: nausea, able to take PO Sodium Chloride (Saline Flush) 10 ml FLUSH ASDIRECTED PRN PRN Reason: Keep Vein Open Discontinued Medications Levofloxacin/Dextrose 500 mg/ (Premix) 100 mls @ 100 mls/hr IV ONETIME ONE Stop: 06/07/17 22:20 Last Admin: 06/07/17 21:38 Dose: 100 mls/hr Sodium Chloride (Normal Saline) 1,000 mls @ 75 mls/hr IV ONETIME ONE Stop: 06/08/17 10:48 Last Admin: 06/07/17 21:37 Dose: 75 mls/hr Non-Formulary Medication (Cefpodoxime Proxetil) 200 mg PO BID [facility] Last Admin: 06/08/17 16:14 Dose: Not Given Nystatin/Triamcinolone Acetonide (Mycolog Oint) 1 gm TOP BID [facility] Last Admin: 06/08/17 08:47 Dose: 1 applic - Exam General: Alert, Oriented, Cooperative, No Acute Distress HEENT: Pupils Equal, Pupils Reactive, Mucous Membr. Moist/[place] Neck: Supple, Trachea Midline Lungs: Clear to Auscultation, Normal Respiratory Effort Cardiovascular: Regular Rate, Regular Rhythm GI/Abdominal Exam: Normal Bowel Sounds, Soft, Non-Tender, No Organomegaly, No Distention, No Abnormal Bruit (Female) Exam: Deferred Back Exam: Normal Inspection, Full Range of Motion. No: CVA Tenderness (L), CVA Tenderness (R) Extremities: Normal Inspection, Normal Range of Motion, Non-Tender, No Pedal Edema, Normal Capillary Refill Skin: Dry, Intact Neurological: No New Focal Deficit - Problem List & Annotations (1) Hematuria SNOMED Code(s): 34595865 Code(s): R31.9 - HEMATURIA, UNSPECIFIED Status: Acute Current Visit: Yes (2) UTI (urinary tract infection) SNOMED Code(s): 57142073 Code(s): N39.0 - URINARY TRACT INFECTION, SITE NOT SPECIFIED Status: Acute Priority: Medium Current Visit: Yes Qualifiers: Urinary tract infection type: site unspecified Hematuria presence: without hematuria Qualified Code(s): N39.0 - Urinary tract infection, site not specified (3) Diabetes SNOMED Code(s): 40806108 Code(s): E11.9 - TYPE 2 DIABETES MELLITUS WITHOUT COMPLICATIONS Status: Chronic Priority: Low Current Visit: Yes Qualifiers: Diabetes mellitus type: type 2 Diabetes mellitus complication status: without complication Diabetes mellitus senior living insulin use: with intermodal truck driver use Qualified Code(s): E11.9 - Type 2 diabetes mellitus without complications ; Z79.4 - truck terminal manager (current) use of insulin; Z79.4 - residential (current) use of insulin; Z79.4 - truck terminal manager (current) use of insulin; Z79.4 - residential ( current) use of insulin (4) Bacteremia SNOMED Code(s): 5780554 Code(s): R78.81 - BACTEREMIA Status: Acute Priority: Medium Current Visit: No (5) Weakness SNOMED Code(s): 73323055 Code(s): R53.1 - WEAKNESS Status: Acute Priority: High Current Visit: No - Problem List Review Problem List Initiated/Reviewed/Updated: Yes - My Orders Last 24 Hours: My Active Orders 06/09/17 12:13 Peripheral IV Care [RC] . DIRECTED Sodium Chloride 0.9% [Saline Flush] 10 ml FLUSH ASDIRECTED PRN Peripheral IV Insertion Adult [OM.PC] Routine - Plan Plan:: Impression 86-year-old female with the history of chronic incontinence presented with generalized weakness and diagnosed was complicated UTI. Urine culture reported Klebsiella which is sensitive to levaquin Blood culture reported heavy growth of probable coagulase negative Staphylococcus Plan -Continue on Levaquin -Awaiting blood culture results -Continue physical therapy -Follow up as outpatient for her gross hematuria -Adjust insulin regimen from low sliding scale regimen to moderate sliding scale regimen -Repeat labs tomorrow Continue heparin for DVT prophylaxis
[2017-06-10] MEDS: Levofloxacin/Dextrose 5%-Water 250 MG in Premix Bag 1 BAG IV SCH (20:28)
[2017-06-10] MEDS: atorvaSTATin 20 MG Tab PO SCH (20:29)
[2017-06-11] MEDS: Heparin Sodium 5,000 Units/ML Vial SUBCUT SCH ×2 (06:06→15:19)
[2017-06-11] MEDS: Cholecalciferol (Vitamin D3) 400 Unit Tab PO SCH (09:14)
[2017-06-11] MEDS: Gabapentin 100 MG Cap PO SCH ×2 (09:15→21:23)
[2017-06-11] MEDS: Aspirin 81 MG Tab.Chew PO SCH (09:15)
[2017-06-11] MEDS: Allopurinol 300 MG Tab PO SCH (09:15)
[2017-06-11] MEDS: Multivitamins,Therapeutic Tab PO SCH (09:16)
[2017-06-11] MEDS: Lisinopril 10 MG Tab PO SCH (09:16)
[2017-06-11] MEDS: Cyanocobalamin (Vitamin B12) 100 MCG Tab PO SCH (09:16)
[2017-06-11] MEDS: Ferrous Sulfate 325 MG Tab PO SCH (09:16)
[2017-06-11] MEDS: amLODIPine 5 MG Tab PO SCH (09:16)
[2017-06-11] MEDS: Hydrochlorothiazide 25 MG Tab PO SCH (09:20)
[2017-06-11] MEDS: Insulin Detemir 100 Units/ML 3 ML Pen SUBCUT SCH ×2 (09:22→21:26)
[2017-06-11] MEDS: [UNRECOGNIZED DRUG - REMARK] TOP SCH ×2 (09:26→21:30)
[2017-06-11] MEDS: Insulin Aspart 100 Units/ML 3 ML Pen SUBCUT SCH ×4 (09:27→21:27)
[2017-06-11] MEDS ORDERED: Insulin Detemir 100 Units/ML 3 ML Pen SUBCUT ONE (10:48)
--- NOTE | 2017-06-11 10:49 | PCM.PN ---
- General Info Date of Service: 06/11/17 Admission Dx/Problem (Free Text): Complicated UTI Subjective Update: Patient stated that today is feeling better. She is still generally weak and does not feel safe going home yet. She denies nausea, vomiting, chest pain, shortness breath, abdominal pain, dysuria, urinary frequency. Patient did not have hematuria since yesterday. - Patient Data Vitals - Most Recent: Last Vital Signs Temp 36.7 C 06/11/17 06:00 Pulse 77 06/11/17 06:00 Resp 20 06/11/17 06:00 BP 132/49 L 06/11/17 09:16 Pulse Ox 97 06/11/17 06:00 Weight - Most Recent: 80.853 kg I&O - Last 24 Hours: Intake & Output 06/10/17 06/11/17 06/11/17 22:59 06:59 14:59 Intake Total 400 284 Balance 400 284 Lab Results Last 24 Hours: Laboratory Results - last 24 hr 06/10/17 06/10/17 06/10/17 Range/Units 11:18 16:45 20:52 POC Glucose 298 H 308 H 300 H (83-110) mg/dl 06/11/17 Range/Units 08:05 POC Glucose 134 H (83-110) mg/dl Amadou Results Last 24 Hours: Microbiology 06/08/17 00:01 Urine Culture - Final Urine, Voided Klebsiella Oxytoca Med Orders - Current: Current Medications Allopurinol (Zyloprim) 300 mg PO DAILY [facility] Last Admin: 06/11/17 09:15 Dose: 300 mg Amlodipine Besylate (Norvasc) 5 mg PO DAILY [facility] Last Admin: 06/11/17 09:16 Dose: 5 mg Aspirin (Aspirin) 81 mg PO DAILY [facility] Last Admin: 06/11/17 09:15 Dose: 81 mg Atorvastatin Calcium (Lipitor) 20 mg PO BEDTIME [facility] Last Admin: 06/10/17 20:29 Dose: 20 mg Cholecalciferol (Vitamin D3) 2,000 units PO DAILY [facility] Last Admin: 06/11/17 09:14 Dose: 2,000 units Cyanocobalamin (Vitamin B12) 100 mcg PO DAILY [facility] Last Admin: 06/11/17 09:16 Dose: 100 mcg Ferrous Sulfate (Ferrous Sulfate) 325 mg PO DAILY [facility] Last Admin: 12/16/17 09:16 Dose: 325 mg Gabapentin (Neurontin) 200 mg PO BID [facility] Last Admin: 06/11/17 09:15 Dose: 200 mg Heparin Sodium (Porcine) (Heparin Sodium) 5,000 units SUBCUT Q8HR [facility] Last Admin: 06/11/17 06:06 Dose: 5,000 units Hydrochlorothiazide (Hydrochlorothiazide) 25 mg PO Q48H [facility] Last Admin: 06/11/17 09:20 Dose: 25 mg Levofloxacin/Dextrose 250 mg/ (Premix) 50 mls @ 50 mls/hr IV Q24H [facility] Last Infusion: 06/11/17 06:47 Dose: 50 mls/hr Insulin Aspart (Novolog) 0 unit SUBCUT QID [facility] PRN Reason: Protocol Last Admin: 06/11/17 09:27 Dose: Not Given Insulin Detemir (Levemir) 15 unit SUBCUT BEDTIME [facility] Last Admin: 06/10/17 21:23 Dose: 15 units Insulin Detemir (Levemir) 20 unit SUBCUT DAILY [facility] Last Admin: 06/11/17 09:22 Dose: 20 units Lisinopril (Prinivil) 10 mg PO DAILY [facility] Last Admin: 06/11/17 09:16 Dose: 10 mg Magnesium Oxide (Magnesium Oxide) 375 mg PO BID [facility] Last Admin: 06/11/17 09:15 Dose: 375 mg Multivitamins (Thera) 1 each PO DAILY [facility] Last Admin: 06/11/17 09:16 Dose: 1 each Nystatin/Zinc Oxide/Hydrocerin Compound* *Non-Form Med 0 each TOP BID [facility] Last Admin: 06/11/17 09:26 Dose: 1 each Ondansetron HCl (Zofran Odt) 4 mg PO Q6H PRN PRN Reason: nausea, able to take PO Sodium Chloride (Saline Flush) 10 ml FLUSH ASDIRECTED PRN PRN Reason: Keep Vein Open Discontinued Medications Levofloxacin/Dextrose 500 mg/ (Premix) 100 mls @ 100 mls/hr IV ONETIME ONE Stop: 06/07/17 22:20 Last Admin: 06/07/17 21:38 Dose: 100 mls/hr Sodium Chloride (Normal Saline) 1,000 mls @ 75 mls/hr IV ONETIME ONE Stop: 06/08/17 10:48 Last Admin: 12/12/17 21:37 Dose: 75 mls/hr Non-Formulary Medication (Cefpodoxime Proxetil) 200 mg PO BID [facility] Last Admin: 06/08/17 16:14 Dose: Not Given Nystatin/Triamcinolone Acetonide (Mycolog Oint) 1 gm TOP BID [facility] Last Admin: 06/08/17 08:47 Dose: 1 applic - Exam General: Alert, Oriented, Cooperative, No Acute Distress, Other (Somewhat frail) . No: Mild Distress, Moderate Distress, Severe Distress, Sedated, Lethargic, Obtunded HEENT: Pupils Equal, Pupils Reactive, EOMI, Mucous Membr. Moist/[place] Neck: Supple, Trachea Midline, No JVD Lungs: Clear to Auscultation, Normal Respiratory Effort Cardiovascular: Regular Rate, Regular Rhythm GI/Abdominal Exam: Normal Bowel Sounds, Soft, Non-Tender, No Organomegaly, No Distention, No Abnormal Bruit, No Mass (Female) Exam: Deferred Back Exam: Normal Inspection, Full Range of Motion. No: CVA Tenderness (L), CVA Tenderness (R) Extremities: Normal Inspection, Normal Range of Motion, Non-Tender, No Pedal Edema, Normal Capillary Refill Skin: Dry, Intact Neurological: No New Focal Deficit Psy/Mental Status: Alert, Normal Affect, Normal Mood - Problem List & Annotations (1) Hematuria SNOMED Code(s): 27234931 Code(s): R31.9 - HEMATURIA, UNSPECIFIED Status: Acute Current Visit: Yes (2) UTI (urinary tract infection) SNOMED Code(s): 86672594 Code(s): N39.0 - URINARY TRACT INFECTION, SITE NOT SPECIFIED Status: Acute Priority: Medium Current Visit: Yes Qualifiers: Urinary tract infection type: site unspecified Hematuria presence: without hematuria Qualified Code(s): N39.0 - Urinary tract infection, site not specified (3) Diabetes SNOMED Code(s): 67811698 Code(s): E11.9 - TYPE 2 DIABETES MELLITUS WITHOUT COMPLICATIONS Status: Chronic Priority: Low Current Visit: Yes Qualifiers: Diabetes mellitus type: type 2 Diabetes mellitus complication status: without complication Diabetes mellitus [facility]p insulin use: with intermediate accountant use Qualified Code(s): E11.9 - Type 2 diabetes mellitus without complications ; Z79.4 - long term care social worker (current) use of insulin; Z79.4 - long term care social worker (current) use of insulin; Z79.4 - [facility] (current) use of insulin; Z79.4 - [facility] ( current) use of insulin (4) Bacteremia SNOMED Code(s): 4451193 Code(s): R78.81 - BACTEREMIA Status: Acute Priority: Medium Current Visit: No (5) Weakness SNOMED Code(s): 34252715 Code(s): R53.1 - WEAKNESS Status: Acute Priority: High Current Visit: No - Problem List Review Problem List Initiated/Reviewed/Updated: Yes - Plan Plan:: Impression 86-year-old female with the history of chronic incontinence presented with generalized weakness and diagnosed was complicated UTI. Urine culture reported Klebsiella which is sensitive to levaquin Blood culture reported Staphylococcus capitis, which is usually part of the skin angel. Most likely the sample was contaminated Plan -Continue on Levaquin -Encourage ambulation -Follow up as outpatient for her gross hematuria -continue moderate sliding scale regimen -And 5 units of Levemir. -Repeat labs tomorrow Continue heparin for DVT prophylaxis
[2017-06-11] MEDS: atorvaSTATin 20 MG Tab PO SCH (21:22)
[2017-06-11] MEDS: Levofloxacin/Dextrose 5%-Water 250 MG in Premix Bag 1 BAG IV SCH (22:04)
[2017-06-12] MEDS: Insulin Detemir 100 Units/ML 3 ML Pen SUBCUT SCH (08:30)
[2017-06-12] MEDS: Insulin Aspart 100 Units/ML 3 ML Pen SUBCUT SCH ×2 (08:31→12:14)
[2017-06-12] MEDS: Cholecalciferol (Vitamin D3) 400 Unit Tab PO SCH (09:05)
[2017-06-12] MEDS: Gabapentin 100 MG Cap PO SCH (09:07)
[2017-06-12] MEDS: Allopurinol 300 MG Tab PO SCH (09:07)
[2017-06-12] MEDS: Ferrous Sulfate 325 MG Tab PO SCH (09:07)
[2017-06-12] MEDS: Multivitamins,Therapeutic Tab PO SCH (09:08)
[2017-06-12] MEDS: amLODIPine 5 MG Tab PO SCH (09:09)
[2017-06-12] MEDS: Cyanocobalamin (Vitamin B12) 100 MCG Tab PO SCH (09:09)
[2017-06-12] MEDS: Lisinopril 10 MG Tab PO SCH (09:09)
[2017-06-12] MEDS: Aspirin 81 MG Tab.Chew PO SCH (09:09)
[2017-06-12] MEDS ORDERED: Insulin Detemir 100 Units/ML 3 ML Pen SUBCUT ONE (11:11)
[2017-06-12 11:27] VITALS: BP 127/56
[2017-06-12] MEDS: [UNRECOGNIZED DRUG - REMARK] TOP SCH (11:43)
--- NOTE | 2017-06-12 11:44 | PCM.DCSUM1 ---
Discharge Summary - Hospital Course Free Text/Narrative:: 86-year-old female with past medical history of hypertension, diabetes mellitus type 2, hyperlipidemia, urinary incontinence, hematuria, C. difficile, recurrent UTI present to the emergency room for having fall at home, feeling weak, chills and was found to have urinary tract infection. She denied nausea, vomiting, chest and, shortness breath, abdominal pain, upper respiratory symptoms, cough, any other symptoms or concerns. Admission laboratory data reported sodium 1:30. Potassium 4.6. BUNs 39. Bicarbonate 24. Creatinine 1.4. Blood glucose was 6. Lactic acid 1.2. Magnesium 1.6. AST 61. ALT 42. BNP 132. WBC 10.6. Hemoglobin 10.5. Urinalysis reported moderate side esterase. semi- packed WBC. Many bacteria. Patient was started on levofloxacin IV. Urine culture grew Klebsiella oxytoco, sensitive to Levaquin. Only 1 blood culture was drawn and grew Staphylococcus capitis, sensitive to Levaquin. Recent was given oral magnesium. She was on heparin for DVT prophylaxis. Patient had physical therapy. Physical therapy evaluate her on last Tuesday and did not think she would need inpatient physical therapy. Patient has been having chronic diarrhea and had C. difficile in the past. No change in her diarrhea recently. States she is on Levaquin on starting her on oral vancomycin and testing for C. difficile. Patient was advised to follow up on result as outpatient. Patient had 2 episodes of hematuria 2-3 days ago but now resolved. Patient had history of chronic hematuria. She is being followed up by her primary care provider who saw her during hospitalization and we both recommended to her following up with urology. Plan of care was discussed with her son Dr. Bin Byrne. Patient blood glucose was elevated. Patient stated that she takes Levemir 34 units twice a day at home. She has been receiving 20 units twice a day during hospitalization in admission to sliding scale insulin. I'll discharge her on Levemir 26 units twice a day and she was advised to check her blood glucose at home and report to her primary care doctor. Patient verbalized understanding agreed with the plan. - Discharge Data Discharge Date: 06/12/17 Discharge Disposition: Home, W Home Health Agency 06 Condition: Fair - Discharge Diagnosis/Problem(s) (1) Hematuria SNOMED Code(s): 58640520 ICD Code: R31.9 - HEMATURIA, UNSPECIFIED Status: Chronic Current Visit: Yes (2) UTI (urinary tract infection) SNOMED Code(s): 29957782 ICD Code: N39.0 - URINARY TRACT INFECTION, SITE NOT SPECIFIED Status: Acute Priority: Medium Current Visit: Yes Qualifiers: Urinary tract infection type: site unspecified Hematuria presence: without hematuria Qualified Code(s): N39.0 - Urinary tract infection, site not specified (3) Diabetes SNOMED Code(s): 91959830 ICD Code: E11.9 - TYPE 2 DIABETES MELLITUS WITHOUT COMPLICATIONS Status: Chronic Priority: Low Current Visit: Yes Qualifiers: Diabetes mellitus type: type 2 Diabetes mellitus complication status: without complication Diabetes mellitus snf insulin use: with snf use Qualified Code(s): E11.9 - Type 2 diabetes mellitus without complications ; 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; Z79.4 - [facility] (current) use of insulin; 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; 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 (4) Bacteremia SNOMED Code(s): 4958911 ICD Code: R78.81 - BACTEREMIA Status: Acute Priority: Medium Current Visit: No (5) Weakness SNOMED Code(s): 28309844 ICD Code: R53.1 - WEAKNESS Status: Acute Priority: High Current Visit: No - Patient Instructions Diet: Heart Healthy Diet, Diabetic Diet Activity: As Tolerated Showering/Bathing: May Shower Notify Provider of: Fever, Nausea and/or Vomiting - Discharge Plan Prescriptions/Med Rec: Levofloxacin [Levaquin] 250 mg PO Q24H #7 tablet Magnesium Oxide 250 mg PO BID #60 tablet Vancomycin [Vancomycin 50 MG/ML Soln] 250 mg PO QID 14 Days #56 bottle Home Medications: Home Meds Allopurinol [Zyloprim] 300 mg PO DAILY 05/02/16 [History] Aspirin 81 mg PO DAILY 05/02/16 [History] Cyanocobalamin (Vitamin B-12) [Vitamin B-12] 100 mcg PO DAILY 05/02/16 [History] Ferrous Sulfate 1 tab PO DAILY 05/02/16 [History] Hydrochlorothiazide 25 mg PO ASDIRECTED 05/02/16 [History] Multivit-Min/FA/Lycopene/Lut [Sentry Senior Tablet] 1 tab PO DAILY 05/02/16 [ History] Vitamin B Complex [B Complex] 1 tab PO DAILY 05/02/16 [History] amLODIPine Besylate [Amlodipine Besylate] 5 mg PO DAILY 05/02/16 [History] atorvaSTATin Calcium [Atorvastatin Calcium] 20 mg PO BEDTIME 05/02/16 [History] Lisinopril [Prinivil] 10 mg PO DAILY tablet 05/06/16 [Rx] Gabapentin [Neurontin] 100 mg PO BID 06/09/17 [History] Insulin Detemir [Levemir] 26 unit SUBCUT BID 06/09/17 [History] Levofloxacin [Levaquin] 250 mg PO Q24H #7 tablet 06/12/17 [Rx] Magnesium Oxide 250 mg PO BID #60 tablet 06/12/17 [Rx] Vancomycin [Vancomycin 50 MG/ML Soln] 250 mg PO QID 14 Days #56 bottle 06/12/17 [Rx] Referrals: PCP,Unobtain [Primary Care Provider] - - General Info Date of Service: 06/12/17 Admission Dx/Problem (Free Text: Complicated UTI Subjective Update: Orlon patient denies fever, chills, nausea, vomiting, chest pain, shortness breath, abdominal pain, dysuria, hematuria, blood in the stool, lower extremities edema, unilateral weakness/numbness/tingling, any other symptoms or concern. Patient was able to ambulate using walker. Patient stated that she feels safe at home and she is able to go home and continue home health. She stated that her helps her. - Patient Data Vitals - Most Recent: Last Vital Signs Temp 35.9 C 06/12/17 11:00 Pulse 73 06/12/17 11:00 Resp 20 06/12/17 11:00 BP 127/56 L 06/12/17 11:00 Pulse Ox 99 06/12/17 11:00 Weight - Most Recent: 80.853 kg I&O - Last 24 hours: Intake & Output 06/11/17 06/12/17 06/12/17 22:59 06:59 14:59 Intake Total 875 575 Balance 875 575 Lab Results - Last 24 hrs: Laboratory Results - last 24 hr 06/11/17 06/11/17 06/12/17 Range/Units 16:57 20:59 07:47 POC Glucose 201 H 224 H 181 H (83-110) mg/dl 06/12/17 Range/Units 10:52 POC Glucose 256 H (83-110) mg/dl Med Orders - Current: Current Medications Allopurinol (Zyloprim) 300 mg PO DAILY [facility] Last Admin: 06/12/17 09:07 Dose: 300 mg Amlodipine Besylate (Norvasc) 5 mg PO DAILY [facility] Last Admin: 06/12/17 09:09 Dose: 5 mg Aspirin (Aspirin) 81 mg PO DAILY [facility] Last Admin: 06/12/17 09:09 Dose: 81 mg Atorvastatin Calcium (Lipitor) 20 mg PO BEDTIME [facility] Last Admin: 06/11/17 21:22 Dose: 20 mg Cholecalciferol (Vitamin D3) 2,000 units PO DAILY [facility] Last Admin: 06/12/17 09:05 Dose: 2,000 units Cyanocobalamin (Vitamin B12) 100 mcg PO DAILY [facility] Last Admin: 06/12/17 09:09 Dose: 100 mcg Ferrous Sulfate (Ferrous Sulfate) 325 mg PO DAILY [facility] Last Admin: 06/12/17 09:07 Dose: 325 mg Gabapentin (Neurontin) 200 mg PO BID [facility] Last Admin: 06/12/17 09:07 Dose: 100 mg Hydrochlorothiazide (Hydrochlorothiazide) 25 mg PO Q48H [facility] Last Admin: 06/11/17 09:20 Dose: 25 mg Levofloxacin/Dextrose 250 mg/ (Premix) 50 mls @ 50 mls/hr IV Q24H [facility] Last Infusion: 06/11/17 23:15 Dose: Infused Insulin Aspart (Novolog) 0 unit SUBCUT QID [facility] PRN Reason: Protocol Last Admin: 06/12/17 08:31 Dose: 2 unit Insulin Detemir (Levemir) 26 unit SUBCUT BID [facility] Lisinopril (Prinivil) 10 mg PO DAILY [facility] Last Admin: 06/12/17 09:09 Dose: 10 mg Magnesium Oxide (Magnesium Oxide) 375 mg PO BID [facility] Last Admin: 06/12/17 09:08 Dose: 375 mg Multivitamins (Thera) 1 each PO DAILY [facility] Last Admin: 06/12/17 09:08 Dose: 1 each Nystatin/Zinc Oxide/Hydrocerin Compound* *Non-Form Med 0 each TOP BID [facility] Last Admin: 06/11/17 21:30 Dose: 1 each Ondansetron HCl (Zofran Odt) 4 mg PO Q6H PRN PRN Reason: nausea, able to take PO Sodium Chloride (Saline Flush) 10 ml FLUSH ASDIRECTED PRN PRN Reason: Keep Vein Open Last Admin: 06/11/17 22:04 Dose: 10 ml Vancomycin HCl (Vancomycin 50 Mg/Ml Soln) 250 mg PO QID [facility] Discontinued Medications Heparin Sodium (Porcine) (Heparin Sodium) 5,000 units SUBCUT Q8HR [facility] Last Admin: 06/11/17 15:19 Dose: Not Given Levofloxacin/Dextrose 500 mg/ (Premix) 100 mls @ 100 mls/hr IV ONETIME ONE Stop: 06/07/17 22:20 Last Admin: 06/07/17 21:38 Dose: 100 mls/hr Sodium Chloride (Normal Saline) 1,000 mls @ 75 mls/hr IV ONETIME ONE Stop: 06/08/17 10:48 Last Admin: 06/07/17 21:37 Dose: 75 mls/hr Insulin Detemir (Levemir) 15 unit SUBCUT BEDTIME [facility] Last Admin: 06/10/17 21:23 Dose: 15 units Insulin Detemir (Levemir) 20 unit SUBCUT DAILY [facility] Last Admin: 06/11/17 09:22 Dose: 20 units Insulin Detemir (Levemir) 20 unit SUBCUT BID [facility] Last Admin: 06/12/17 08:30 Dose: 20 units Insulin Detemir (Levemir) 5 unit SUBCUT ONETIME ONE Stop: 06/11/17 10:49 Last Admin: 06/11/17 11:09 Dose: 5 units Insulin Detemir (Levemir) 6 unit SUBCUT ONETIME ONE Stop: 06/12/17 11:12 Non-Formulary Medication (Cefpodoxime Proxetil) 200 mg PO BID [facility] Last Admin: 06/08/17 16:14 Dose: Not Given Nystatin/Triamcinolone Acetonide (Mycolog Oint) 1 gm TOP BID [facility] Last Admin: 06/08/17 08:47 Dose: 1 applic - Exam General: Reports: Alert, Oriented, Cooperative. Denies: No Acute Distress, Mild Distress, Moderate Distress, Severe Distress, Sedated, Lethargic, Obtunded HEENT: Reports: Pupils Equal, Pupils Reactive, EOMI, Mucous Membr. Moist/[place] Neck: Reports: Supple, Trachea Midline, No JVD Lungs: Reports: Clear to Auscultation, Normal Respiratory Effort. Denies: Crackles, Rales, Rhonchi, Rub, Stridor, Wheezing Cardiovascular: Reports: Regular Rate, Regular Rhythm GI/Abdominal Exam: Normal Bowel Sounds, Soft, Non-Tender, No Organomegaly, No Distention, No Abnormal Bruit, No Mass (Female) Exam: Deferred Rectal (Female) Exam: Deferred Back Exam: Reports: Normal Inspection, Full Range of Motion. Denies: CVA Tenderness (L), CVA Tenderness (R) Extremities: Normal Inspection, Normal Range of Motion, Non-Tender, No Pedal Edema, Normal Capillary Refill Skin: Reports: Dry, Intact. Denies: Rash Neurological: Reports: No New Focal Deficit Psy/Mental Status: Reports: Alert, Normal Affect, Normal Mood *Q Meaningful Use (DIS) - VTE *Q VTE Criteria *Q: - Stroke *Q Stroke Criteria *Q: - AMI *Q AMI Criteria *Q:
[2017-06-12] MEDS ORDERED: Vancomycin 50 MG/ML Oral Solution Bottle Kit PO SCH (13:00)
[2017-06-12] MEDS ORDERED: Insulin Detemir 100 Units/ML 3 ML Pen SUBCUT SCH (21:00)
== END 2017-06-12 14:00 | disposition home health service (06) | DRG 690 ==
LOC: DL.ED 18:43 → UNDOADMIN 21:54 → DL.MS 21:54
PROVIDERS: ADMIT Internal Medicine; ATTEND Internal Medicine
DX: N39.0 Urinary tract infection, site not specified (principal); R78.81 Bacteremia; E78.00 Pure hypercholesterolemia, unspecified; E87.1 Hypo-osmolality and hyponatremia; B96.1 Klebsiella pneumoniae [K. pneumoniae] as the cause of diseases classified elsewhere; E61.1 Iron deficiency; M25.551 Pain in right hip; W07.XXXA Fall from chair, initial encounter; Y92.019 Unspecified place in single-family (private) house as the place of occurrence of the external cause; B95.7 Other staphylococcus as the cause of diseases classified elsewhere; R31.9 Hematuria, unspecified; Z79.4 Long term (current) use of insulin; E11.42 Type 2 diabetes mellitus with diabetic polyneuropathy; I10 Essential (primary) hypertension; E78.5 Hyperlipidemia, unspecified; E53.8 Deficiency of other specified B group vitamins; N31.9 Neuromuscular dysfunction of bladder, unspecified; N39.498 Other specified urinary incontinence; Z79.899 Other long term (current) drug therapy; Z87.891 Personal history of nicotine dependence; Z88.8 Allergy status to other drugs, medicaments and biological substances; E83.52 Hypercalcemia; E83.42 Hypomagnesemia; R53.1 Weakness
CPT/HCPCS: 36415; 71010; 74176; 80053; 81001; 82962; 83605; 83735; 83880; 84484; 85025; 87040; 87077; 87186; 96361; 96365; 99285; J1956; J7030; 80048; 85027; 87086; 87088; 87493; 97116-GP; 97161-GP; 97165-GO; A9270-GY; J1644; J1815-GY; J7050

== ENCOUNTER 2019-10-22 07:07 | Observation (INO) | payer MEDICARE, OTHER ==
--- NOTE | 2019-10-22 07:46 | EDM.PDOC ---
ED HPI GENERAL MEDICAL PROBLEM - General Chief Complaint: Lower Extremity Injury/Pain Stated Complaint: ambulance Time Seen by Provider: 10/22/19 07:25 Source of Information: Reports: Patient, EMS History Limitations: Reports: No Limitations - History of Present Illness INITIAL COMMENTS - FREE TEXT/NARRATIVE: This 88 yo female patient was brought to the ED by [facility] due to right hip pain and the inability to get out of bed. The patient reports her right hip has been bothering her for about 1 week, but over the past 2 days she has had increased pain with movement. Today, the patient reports she is unable to lift her leg off the bed. The patient reports she has not take any of her medications yet today. The patient reports she has not been seen by her primary care provider for her current symptoms. Onset Date: 10/15/19 Duration: Constant, Getting Worse Location: Reports: Lower Extremity, Right (hip) Quality: Reports: Ache Severity: Moderate Improves with: Reports: None Worsens with: Reports: None Context: Reports: Other Associated Symptoms: Reports: No Other Symptoms Right Hip Pain Score (Numeric/FACES): 10 - Related Data Allergies Allergy/AdvReac Type Severity Reaction Status Date / Time meperidine HCl [From Demerol] Allergy Rash Verified 10/22/19 07:20 Home Meds: Home Meds Allopurinol [Zyloprim] 300 mg PO DAILY 05/02/16 [History] Aspirin 81 mg PO DAILY 05/02/16 [History] Cyanocobalamin (Vitamin B-12) [Vitamin B-12] 100 mcg PO DAILY 05/02/16 [History] Ferrous Sulfate 1 tab PO DAILY 05/02/16 [History] Hydrochlorothiazide 25 mg PO ASDIRECTED 05/02/16 [History] Multivit-Min/FA/Lycopen/Lutein [Sentry Senior Tablet] 1 tab PO DAILY 05/02/16 [ History] Vitamin B Complex [B Complex] 1 tab PO DAILY 05/02/16 [History] amLODIPine Besylate [Amlodipine Besylate] 5 mg PO DAILY 05/02/16 [History] atorvaSTATin Calcium [Atorvastatin Calcium] 20 mg PO BEDTIME 05/02/16 [History] Lisinopril [Prinivil] 10 mg PO DAILY tablet 05/06/16 [Rx] Gabapentin [Neurontin] 100 mg PO BID 06/09/17 [History] Insulin Detemir [Levemir] 26 unit SUBCUT BID 06/09/17 [History] Levofloxacin [Levaquin] 250 mg PO Q24H #7 tablet 06/12/17 [Rx] Magnesium Oxide 250 mg PO BID #60 tablet 06/12/17 [Rx] Vancomycin [Vancomycin 50 MG/ML Soln] 250 mg PO QID 14 Days #56 bottle 06/12/17 [Rx] Past Medical History HEENT History: Reports: Impaired Vision Other HEENT History: wear glasses for distance Cardiovascular History: Reports: High Cholesterol, Hypertension Respiratory History: Reports: None Gastrointestinal History: Reports: None Genitourinary History: Reports: Urinary Incontinence, UTI, Recurrent FLOW MANAGER History: Reports: None Other FLOW MANAGER History: 5 NVD Musculoskeletal History: Reports: Gout, Osteoarthritis Neurological History: Reports: Neuropathy, Peripheral Psychiatric History: Reports: None Endocrine/Metabolic History: Reports: Diabetes, Type II, Obesity/BMI 30+ Hematologic History: Reports: Iron Deficiency Immunologic History: Reports: None Oncologic (Cancer) History: Reports: None Dermatologic History: Reports: None - Infectious Disease History Infectious Disease History: Reports: Chicken Pox, Measles, Mumps - Past Surgical History Head Surgeries/Procedures: Reports: None Social & Family History - Family History Family Medical History: Noncontributory - Tobacco Use Smoking Status *Q: Never Smoker - Caffeine Use Caffeine Use: Reports: Coffee, Soda - Recreational Drug Use Recreational Drug Use: No Review of Systems - Review of Systems Review Of Systems: Comprehensive ROS is negative, except as noted in HPI. ED EXAM, GENERAL - Physical Exam Exam: See Below Exam Limited By: No Limitations General Appearance: Alert, WD/WN, Moderate Distress Eye Exam: Bilateral Eye: EOMI, Normal Inspection, PERRL Ears: Normal External Exam, Normal Canal, Hearing Grossly Normal, Normal TMs Nose: Normal Inspection, Normal Mucosa, No Blood Throat/Mouth: Normal Inspection Head: Atraumatic, Normocephalic Neck: Normal Inspection, Supple, Non-Tender, Full Range of Motion Respiratory/Chest: No Respiratory Distress, Lungs Clear, Normal Breath Sounds, No Accessory Muscle Use, Chest Non-Tender Cardiovascular: Normal Peripheral Pulses, Regular Rate, Rhythm, No Edema, No Gallop, No Rub, Systolic Murmur GI/Abdominal: Normal Bowel Sounds, Soft, Non-Tender, No Organomegaly, No Distention, No Abnormal Bruit, No Mass (Female) Exam: Deferred Rectal (Female) Exam: Deferred Back Exam: Normal Inspection, Full Range of Motion, NT Extremities: Normal Capillary Refill, Leg Pain (right hip pain and chronic left knee pain), Limited Range of Motion (due to weakness in right leg and hip) Neurological: Alert, Oriented, CN II-XII Intact, Normal Cognition, Normal Gait, Normal Reflexes, No Motor/Sensory Deficits Psychiatric: Normal Affect, Normal Mood Skin Exam: Warm, Dry, Intact, Normal Color, No Rash Lymphatic: No Adenopathy Course - Vital Signs Last Recorded V/S: Last Vital Signs Temp 36.4 C 10/22/19 07:20 Pulse 99 10/22/19 07:20 Resp 14 10/22/19 07:20 BP 138/55 L 10/22/19 07:20 Pulse Ox 98 10/22/19 07:20 - Orders/Labs/Meds Orders: Active Orders 24 hr Category Date Time Status Admission Diagnosis [ADT] Urgent ADT 10/22/19 08:53 Ordered Admission Status [Patient Status] [ADT] Routine ADT 10/22/19 08:53 Ordered CULTURE BLOOD [BC] Stat Lab 10/22/19 07:47 Received CULTURE URINE [RM] Urgent Lab 10/22/19 07:39 Received Labs: Laboratory Tests 10/22/19 10/22/19 10/22/19 Range/Units 07:39 07:47 07:47 WBC (5.0-10.0) 10^3/uL RBC (4.2-5.4) 10^6/uL Hgb (12.0-16.0) g/dL Hct (37.0-47.0) % MCV (80-100) fL MCH (27.0-34.0) pg MCHC (33.0-35.0) g/dL Plt Count (150-450) 10^3/uL Neut % (Auto) (42.2-75.2) % Lymph % (Auto) (20.5-50.1) % [place] % (Auto) (2-8) % Eos % (Auto) (1.0-3.0) % Baso % (Auto) (0.0-1.0) % Add Manual Diff Neutrophils % (Manual) (42-75) % Band Neutrophils % % Lymphocytes % (Manual) (20-50) % Monocytes % (Manual) (2-8) % Eosinophils % (Manual) (1-3) % Sodium 136 (136-145) mmol/L Potassium 4.0 (3.5-5.1) mmol/L Chloride 100 (98-107) mmol/L Carbon Dioxide 25 (21-32) mmol/L Anion Gap 15.0 H (7-13) mEq/L BUN 34 H (7-18) mg/dL Creatinine 1.45 H (0.55-1.02) mg/dL Est Cr Clr Drug Dosing 24.62 mL/min Estimated GFR (MDRD) 34 BUN/Creatinine Ratio 23.4 (No establ ref range) Glucose 86 (74-99) mg/dL Lactic Acid 1.0 (0.4-2.0) mmol/L Calcium 9.9 (8.5-10.1) mg/dL Total Bilirubin 0.6 (0.2-1.0) mg/dL AST 55 H (15-37) U/L ALT 57 (14-59) U/L Alkaline Phosphatase 108 (46-116) U/L Total Protein 7.0 (6.4-8.2) g/dL Albumin 2.8 L (3.4-5.0) g/dL Globulin 4.2 Albumin/Globulin Ratio 0.67 Urine Color Yellow (YELLOW) Urine Appearance Turbid (CLEAR) Urine pH 6.0 (5.0-9.0) Ur Specific [place] 1.025 (1.005-1.030) Urine Protein 30 H (NEGATIVE) Urine Glucose (UA) Negative (NEGATIVE) Urine Ketones Negative (NEGATIVE) Urine Occult Blood Moderate H (NEGATIVE) Urine Nitrite Positive H (NEGATIVE) Urine Bilirubin Negative (NEGATIVE) Urine Urobilinogen 0.2 (0.2-1.0) mg/dL Ur Leukocyte Esterase Large H (NEGATIVE) Urine RBC 10-20 H /HPF Urine WBC >100 H (0-5/HPF) /HPF Ur Epithelial Cells Few (NOT SEEN) /HPF Amorphous Sediment Few (NOT SEEN) /HPF Urine Bacteria Many H (0-FEW/HPF) /HPF Urine Mucus Not seen (NOT SEEN) /LPF 10/22/19 Range/Units 07:47 WBC 13.9 H (5.0-10.0) 10^3/uL RBC 3.51 L (4.2-5.4) 10^6/uL Hgb 11.2 L D (12.0-16.0) g/dL Hct 34.4 L (37.0-47.0) % MCV 98.0 D (80-100) fL MCH 31.9 (27.0-34.0) pg MCHC 32.6 L (33.0-35.0) g/dL Plt Count 258 (150-450) 10^3/uL Neut % (Auto) 68.5 (42.2-75.2) % Lymph % (Auto) 23.2 (20.5-50.1) % [place] % (Auto) 6.7 (2-8) % Eos % (Auto) 1.3 (1.0-3.0) % Baso % (Auto) 0.3 (0.0-1.0) % Add Manual Diff Yes Neutrophils % (Manual) 71 (42-75) % Band Neutrophils % 2 % Lymphocytes % (Manual) 21 (20-50) % Monocytes % (Manual) 5 (2-8) % Eosinophils % (Manual) 1 (1-3) % Sodium (136-145) mmol/L Potassium (3.5-5.1) mmol/L Chloride (98-107) mmol/L Carbon Dioxide (21-32) mmol/L Anion Gap (7-13) mEq/L BUN (7-18) mg/dL Creatinine (0.55-1.02) mg/dL Est Cr Clr Drug Dosing mL/min Estimated GFR (MDRD) BUN/Creatinine Ratio (No establ ref range) Glucose (74-99) mg/dL Lactic Acid (0.4-2.0) mmol/L Calcium (8.5-10.1) mg/dL Total Bilirubin (0.2-1.0) mg/dL AST (15-37) U/L ALT (14-59) U/L Alkaline Phosphatase (46-116) U/L Total Protein (6.4-8.2) g/dL Albumin (3.4-5.0) g/dL Globulin Albumin/Globulin Ratio Urine Color (YELLOW) Urine Appearance (CLEAR) Urine pH (5.0-9.0) Ur Specific [place] (1.005-1.030) Urine Protein (NEGATIVE) Urine Glucose (UA) (NEGATIVE) Urine Ketones (NEGATIVE) Urine Occult Blood (NEGATIVE) Urine Nitrite (NEGATIVE) Urine Bilirubin (NEGATIVE) Urine Urobilinogen (0.2-1.0) mg/dL Ur Leukocyte Esterase (NEGATIVE) Urine RBC /HPF Urine WBC (0-5/HPF) /HPF Ur Epithelial Cells (NOT SEEN) /HPF Amorphous Sediment (NOT SEEN) /HPF Urine Bacteria (0-FEW/HPF) /HPF Urine Mucus (NOT SEEN) /LPF Departure - Departure Time of Disposition: 08:56 Disposition: Refer to Observation Condition: Fair Clinical Impression: Right hip pain, Impaired mobility and ADLs UTI (urinary tract infection) Qualifiers: Urinary tract infection type: site unspecified Hematuria presence: without hematuria Qualified Code(s): N39.0 - Urinary tract infection, site not specified - Discharge Information *PRESCRIPTION DRUG MONITORING PROGRAM REVIEWED*: Not Applicable *COPY OF PRESCRIPTION DRUG MONITORING REPORT IN PATIENT BLAKE: Not Applicable Care Plan Goals: Discussed the patient's history, examination, lab and x-ray results with Dr. Leo. Dr. Leo accepted the patient for continued evaluation and management as an observation patient at [facility]. Sepsis Event Note - Evaluation Sepsis Screening Result: No Definite Risk - Focused Exam Vital Signs: Vital Signs Temp Pulse Resp BP Pulse Ox 10/22/19 07:20 36.4 C 99 14 138/55 L 98 Date Exam was Performed: 10/22/19 Time Exam was Performed: 08:58 - My Orders Last 24 Hours: My Active Orders 10/22/19 07:39 CULTURE URINE [RM] Urgent 10/22/19 07:47 CULTURE BLOOD [BC] Stat 10/22/19 08:53 Admission Diagnosis [ADT] Urgent Admission Status [Patient Status] [ADT] Routine - Assessment/Plan Last 24 Hours: My Active Orders 10/22/19 07:39 CULTURE URINE [RM] Urgent 10/22/19 07:47 CULTURE BLOOD [BC] Stat 10/22/19 08:53 Admission Diagnosis [ADT] Urgent Admission Status [Patient Status] [ADT] Routine
[2019-10-22] MEDS ORDERED: Acetaminophen 325 MG Tab PO PRN (10:34)
--- NOTE | 2019-10-22 10:47 | PCM.HP ---
H&P History of Present Illness - General Date of Service: 10/22/19 Admit Problem/Dx: Admission Diagnosis/Problem Admission Diagnosis/Problem UTI, Urinary tract infectious disease Source of Information: Patient History Limitations: Reports: No Limitations - History of Present Illness Initial Comments - Free Text/Narative: 88 yo F with PMH of HTN, HLD, DM2, osteoarthritis who presents with right hip pain. Pain is moderate to severe, restricting movement at the hip, worse pain with movement. Ambulatory difficulty. No fever, chest pain, SOB, cough, abdominal pain, nausea or vomiting No saddle anesthesia, no numbness. Has some urine incontinence at baseline and uses adult diapers. Has some dysuria intermittently In the ER, hip XR showed osteoarthritis, no fracture Urinalysis positive for UTI Right Hip Pain Score (Numeric/FACES): 10 - Related Data Allergies/Adverse Reactions: Allergies Allergy/AdvReac Type Severity Reaction Status Date / Time meperidine HCl [From Demerol] Allergy Rash Verified 10/22/19 09:56 Home Medications: Home Meds Allopurinol [Zyloprim] 150 mg PO 1400 05/02/16 [History] Aspirin 81 mg PO DAILY 05/02/16 [History] Cyanocobalamin (Vitamin B-12) [Vitamin B-12] 100 mcg PO DAILY 05/02/16 [History] Ferrous Sulfate 324 mg PO DAILY 05/02/16 [History] Hydrochlorothiazide 25 mg PO .EVERYOTHERDAY 05/02/16 [History] Multivit-Min/FA/Lycopen/Lutein [Sentry Senior Tablet] 1 tab PO DAILY 05/02/16 [ History] Vitamin B Complex [B Complex] 1 tab PO 1200 05/02/16 [History] amLODIPine Besylate [Amlodipine Besylate] 5 mg PO DAILY 05/02/16 [History] atorvaSTATin Calcium [Atorvastatin Calcium] 20 mg PO BEDTIME 05/02/16 [History] Lisinopril [Prinivil] 10 mg PO DAILY tablet 05/06/16 [Rx] Gabapentin [Neurontin] 100 mg PO BID 06/09/17 [History] Cholecalciferol (Vitamin D3) [Vitamin D3] 2,000 unit PO BEDTIME 10/22/19 [ History] Insulin Glarg,Human.Rec.Analog [Lantus] 64 unit SUBCUT DAILY 10/22/19 [History] Magnesium Oxide [Magnesium] 400 mg PO DAILY 10/22/19 [History] Past Medical History HEENT History: Reports: Impaired Vision Other HEENT History: wear glasses for distance Cardiovascular History: Reports: High Cholesterol, Hypertension Respiratory History: Reports: None Gastrointestinal History: Reports: None Genitourinary History: Reports: Urinary Incontinence, UTI, Recurrent [employer] History: Reports: None Other OB/BYN History: 5 NVD Musculoskeletal History: Reports: Gout, Osteoarthritis Neurological History: Reports: Neuropathy, Peripheral Psychiatric History: Reports: None Endocrine/Metabolic History: Reports: Diabetes, Type II, Obesity/BMI 30+ Hematologic History: Reports: Iron Deficiency Immunologic History: Reports: None Oncologic (Cancer) History: Reports: None Dermatologic History: Reports: None - Infectious Disease History Infectious Disease History: Reports: Chicken Pox, Measles, Mumps - Past Surgical History Head Surgeries/Procedures: Reports: None Social & Family History - Family History Family Medical History: Noncontributory - Tobacco Use Smoking Status *Q: Never Smoker - Caffeine Use Caffeine Use: Reports: Coffee, Soda - Recreational Drug Use Recreational Drug Use: No H&P Review of Systems - Review of Systems: Review Of Systems: See Below General: Denies: Fever HEENT: Reports: No Symptoms Pulmonary: Reports: No Symptoms Cardiovascular: Reports: No Symptoms Gastrointestinal: Reports: No Symptoms Genitourinary: Reports: No Symptoms Musculoskeletal: Reports: Joint Pain Skin: Reports: No Symptoms Psychiatric: Reports: No Symptoms Neurological: Reports: No Symptoms Hematologic/Lymphatic: Reports: No Symptoms Immunologic: Reports: No Symptoms Exam - Exam Exam: See Below - Vital Signs Vital Signs: Last Vital Signs Temp 36.7 C 10/22/19 09:49 Pulse 84 10/22/19 09:49 Resp 20 10/22/19 09:49 BP 135/55 L 10/22/19 09:49 Pulse Ox 96 10/22/19 09:49 Weight: 91.036 kg - Exam General: Alert, Oriented HEENT: Conjunctiva Clear Neck: Supple, Trachea Midline Lungs: Clear to Auscultation, Normal Respiratory Effort Cardiovascular: Regular Rate, Regular Rhythm, Normal S1, Normal S2 GI/Abdominal Exam: Normal Bowel Sounds, Soft, Non-Tender, No Organomegaly Extremities: Limited Range of Motion, Other (right hip tenderness) Neuro Extensive - Mental Status: Alert, Oriented x3, Normal Mood/Affect Psychiatric: Alert, Normal Affect, Normal Mood - Patient Data Lab Results Last 24 hrs: Laboratory Results - last 24 hr 10/22/19 10/22/19 10/22/19 Range/Units 07:39 07:47 07:47 WBC (5.0-10.0) 10^3/uL RBC (4.2-5.4) 10^6/uL Hgb (12.0-16.0) g/dL Hct (37.0-47.0) % MCV (80-100) fL MCH (27.0-34.0) pg MCHC (33.0-35.0) g/dL Plt Count (150-450) 10^3/uL Neut % (Auto) (42.2-75.2) % Lymph % (Auto) (20.5-50.1) % Bee % (Auto) (2-8) % Eos % (Auto) (1.0-3.0) % Baso % (Auto) (0.0-1.0) % Add Manual Diff Neutrophils % (Manual) (42-75) % Band Neutrophils % % Lymphocytes % (Manual) (20-50) % Monocytes % (Manual) (2-8) % Eosinophils % (Manual) (1-3) % Sodium 136 (136-145) mmol/L Potassium 4.0 (3.5-5.1) mmol/L Chloride 100 (98-107) mmol/L Carbon Dioxide 25 (21-32) mmol/L Anion Gap 15.0 H (7-13) mEq/L BUN 34 H (7-18) mg/dL Creatinine 1.45 H (0.55-1.02) mg/dL Est Cr Clr Drug Dosing 24.62 mL/min Estimated GFR (MDRD) 34 BUN/Creatinine Ratio 23.4 (No establ ref range) Glucose 86 (74-99) mg/dL Lactic Acid 1.0 (0.4-2.0) mmol/L Calcium 9.9 (8.5-10.1) mg/dL Total Bilirubin 0.6 (0.2-1.0) mg/dL AST 55 H (15-37) U/L ALT 57 (14-59) U/L Alkaline Phosphatase 108 (46-116) U/L Total Protein 7.0 (6.4-8.2) g/dL Albumin 2.8 L (3.4-5.0) g/dL Globulin 4.2 Albumin/Globulin Ratio 0.67 Urine Color Yellow (YELLOW) Urine Appearance Turbid (CLEAR) Urine pH 6.0 (5.0-9.0) Ur Specific [place] 1.025 (1.005-1.030) Urine Protein 30 H (NEGATIVE) Urine Glucose (UA) Negative (NEGATIVE) Urine Ketones Negative (NEGATIVE) Urine Occult Blood Moderate H (NEGATIVE) Urine Nitrite Positive H (NEGATIVE) Urine Bilirubin Negative (NEGATIVE) Urine Urobilinogen 0.2 (0.2-1.0) mg/dL Ur Leukocyte Esterase Large H (NEGATIVE) Urine RBC 10-20 H /HPF Urine WBC >100 H (0-5/HPF) /HPF Ur Epithelial Cells Few (NOT SEEN) /HPF Amorphous Sediment Few (NOT SEEN) /HPF Urine Bacteria Many H (0-FEW/HPF) /HPF Urine Mucus Not seen (NOT SEEN) /LPF 10/22/19 Range/Units 07:47 WBC 13.9 H (5.0-10.0) 10^3/uL RBC 3.51 L (4.2-5.4) 10^6/uL Hgb 11.2 L D (12.0-16.0) g/dL Hct 34.4 L (37.0-47.0) % MCV 98.0 D (80-100) fL MCH 31.9 (27.0-34.0) pg MCHC 32.6 L (33.0-35.0) g/dL Plt Count 258 (150-450) 10^3/uL Neut % (Auto) 68.5 (42.2-75.2) % Lymph % (Auto) 23.2 (20.5-50.1) % Bee % (Auto) 6.7 (2-8) % Eos % (Auto) 1.3 (1.0-3.0) % Baso % (Auto) 0.3 (0.0-1.0) % Add Manual Diff Yes Neutrophils % (Manual) 71 (42-75) % Band Neutrophils % 2 % Lymphocytes % (Manual) 21 (20-50) % Monocytes % (Manual) 5 (2-8) % Eosinophils % (Manual) 1 (1-3) % Sodium (136-145) mmol/L Potassium (3.5-5.1) mmol/L Chloride (98-107) mmol/L Carbon Dioxide (21-32) mmol/L Anion Gap (7-13) mEq/L BUN (7-18) mg/dL Creatinine (0.55-1.02) mg/dL Est Cr Clr Drug Dosing mL/min Estimated GFR (MDRD) BUN/Creatinine Ratio (No establ ref range) Glucose (74-99) mg/dL Lactic Acid (0.4-2.0) mmol/L Calcium (8.5-10.1) mg/dL Total Bilirubin (0.2-1.0) mg/dL AST (15-37) U/L ALT (14-59) U/L Alkaline Phosphatase (46-116) U/L Total Protein (6.4-8.2) g/dL Albumin (3.4-5.0) g/dL Globulin Albumin/Globulin Ratio Urine Color (YELLOW) Urine Appearance (CLEAR) Urine pH (5.0-9.0) Ur Specific [place] (1.005-1.030) Urine Protein (NEGATIVE) Urine Glucose (UA) (NEGATIVE) Urine Ketones (NEGATIVE) Urine Occult Blood (NEGATIVE) Urine Nitrite (NEGATIVE) Urine Bilirubin (NEGATIVE) Urine Urobilinogen (0.2-1.0) mg/dL Ur Leukocyte Esterase (NEGATIVE) Urine RBC /HPF Urine WBC (0-5/HPF) /HPF Ur Epithelial Cells (NOT SEEN) /HPF Amorphous Sediment (NOT SEEN) /HPF Urine Bacteria (0-FEW/HPF) /HPF Urine Mucus (NOT SEEN) /LPF Result Diagrams: 10/22/19 07:47 10/22/19 07:47 Problem List Initiated/Reviewed/Updated: Yes Orders Last 24hrs: Active Orders 24 hr Category Date Time Status Admission Diagnosis [ADT] Urgent ADT 10/22/19 08:53 Ordered Admission Status [Patient Status] [ADT] Routine ADT 10/22/19 08:53 Active Patient Status [ADT] Routine ADT 10/22/19 10:25 Ordered Accu Check [Blood Glucose Check, Bedside] [] Care 10/22/19 10:25 Ordered QIDACANDBED Ambulate [] ASDIRECTED Care 10/22/19 10:25 Ordered Height and Weight [] DAILY Care 10/22/19 10:25 Ordered Oxygen Therapy [RC] PRN Care 10/22/19 10:25 Ordered Up With Assistance [RC] ASDIRECTED Care 10/22/19 10:25 Ordered VTE/DVT Education [RC] PER UNIT ROUTINE Care 10/22/19 10:25 Ordered Vital Signs [RC] Q4H Care 10/22/19 10:25 Ordered OT Evaluation and Treatment [CONS] Routine Cons 10/22/19 10:25 Ordered PT Evaluation and Treatment [CONS] Routine Cons 10/22/19 10:25 Ordered BASIC METABOLIC PANEL,BMP [CHEM] AM Lab 10/23/19 05:11 Ordered BASIC METABOLIC PANEL,BMP [CHEM] AM Lab 10/24/19 05:11 Ordered BASIC METABOLIC PANEL,BMP [CHEM] AM Lab 10/25/19 05:11 Ordered CBC W/O DIFF,HEMOGRAM [HEME] AM Lab 10/23/19 05:11 Ordered CBC W/O DIFF,HEMOGRAM [HEME] AM Lab 10/24/19 05:11 Ordered CBC W/O DIFF,HEMOGRAM [HEME] AM Lab 10/25/19 05:11 Ordered CULTURE BLOOD [BC] Stat Lab 10/22/19 07:47 Received CULTURE URINE [RM] Urgent Lab 10/22/19 07:39 Received Acetaminophen [Tylenol] Med 10/22/19 10:34 Ordered 650 mg PO Q4H PRN Acetaminophen [Tylenol] Med 10/22/19 14:00 Ordered 650 mg PO TID Aspirin Med 10/23/19 09:00 Ordered 81 mg PO DAILY Cholecalciferol (Vitamin D3) [Vitamin D3] Med 10/22/19 21:00 Ordered 2,000 unit PO BEDTIME Cyanocobalamin (Vitamin B12) [Vitamin B12] Med 10/23/19 09:00 Ordered 100 mcg PO DAILY Ferrous Sulfate [Ferrous Sulfate] Med 10/23/19 09:00 Ordered 324 mg PO DAILY Gabapentin [Neurontin] Med 10/22/19 21:00 Ordered 100 mg PO BID Insulin Glarg,Human.Rec.Analog [LantUS] Med 10/23/19 09:00 Ordered 40 unit SUBCUT DAILY Insulin Lispro [HumaLOG] Med 10/22/19 11:00 Ordered See Protocol SUBCUT QIDACANDBED Multivit-Min/FA/Lycopen/Lutein [Sentry Senior Tablet] Med 10/23/19 09:00 Ordered 1 tab PO DAILY Vitamin B Complex [B Complex] Med 10/22/19 12:00 Ordered 1 tab PO 1200 allopurinoL [Zyloprim] Med 10/22/19 14:00 Ordered 150 mg PO 1400 amLODIPine [Norvasc] Med 10/23/19 09:00 Ordered 5 mg PO DAILY atorvaSTATin [Lipitor] Med 10/22/19 21:00 Ordered 20 mg PO BEDTIME cephALEXin [Keflex] Med 10/22/19 12:00 Ordered 500 mg PO Q6HR hydroCHLOROthiazide Med 10/22/19 10:45 Ordered 25 mg PO .EVERYOTHERDAY lisinopriL [Prinivil] Med 10/23/19 09:00 Ordered 10 mg PO DAILY oxyCODONE Med 10/22/19 10:35 Ordered 5 mg PO Q4H PRN Resuscitation Status Routine Resus Stat 10/22/19 10:25 Ordered Medication Orders Acetaminophen (Tylenol) 650 mg PO Q4H PRN PRN Reason: Pain (mild 1-3) Acetaminophen (Tylenol) 650 mg PO TID [facility] Allopurinol (Zyloprim) 150 mg PO 1400 [facility] Amlodipine Besylate (Norvasc) 5 mg PO DAILY [facility] Aspirin (Aspirin) 81 mg PO DAILY [facility] Atorvastatin Calcium (Lipitor) 20 mg PO BEDTIME [facility] Cephalexin (Keflex) 500 mg PO Q6HR [facility] Stop: 10/27/19 12:01 Cyanocobalamin (Vitamin B12) 100 mcg PO DAILY [facility] Gabapentin (Neurontin) 100 mg PO BID [facility] Hydrochlorothiazide (Hydrochlorothiazide) 25 mg PO .EVERYOTHERDAY [facility] Insulin Glargine (Lantus) 40 unit SUBCUT DAILY [facility] Insulin Human Lispro (Humalog) 0 unit SUBCUT QIDACANDBED [facility]; Protocol Lisinopril (Prinivil) 10 mg PO DAILY [facility] Non-Formulary Medication (Vitamin B Complex [B Complex]) 1 tab PO 1200 [facility] Non-Formulary Medication (Cholecalciferol (Vitamin D3) [Vitamin D3]) 2,000 unit PO BEDTIME [facility] Non-Formulary Medication (Ferrous Sulfate [Ferrous Sulfate]) 324 mg PO DAILY [facility] Non-Formulary Medication (Multivit-Min/Fa/Lycopen/Lutein [Sentry Senior Tablet] ) 1 tab PO DAILY [facility] Oxycodone HCl (Oxycodone) 5 mg PO Q4H PRN PRN Reason: Pain (severe 7-10) Assessment/Plan Comment:: #Right Hip Pain #Right Hip Osteoarthritis Hip XR no fracture Pain management PT/OT #UTI #Leucocytosis oral Keflex monitor CBC #CKD Cr 1.4, avoid nephrotoxic agents monitor Cr daily #DM2 ISS, accucheck Continue home insulin regimen, decreased lantus to 40 units HS #HLD continue home meds #DVT ppx SC heparin #Full code
[2019-10-22] MEDS ORDERED: Enoxaparin 40 MG/0.4 ML Syringe SUBCUT SCH (11:00)
[2019-10-22] MEDS: Aspirin 81 MG Tab.Chew PO SCH (13:55)
[2019-10-22] MEDS: Cyanocobalamin (Vitamin B12) 100 MCG Tab PO SCH (13:55)
[2019-10-22] MEDS: Gabapentin 100 MG Cap PO SCH ×2 (13:55→20:28)
[2019-10-22] MEDS: Allopurinol 300 MG Tab PO SCH (13:56)
[2019-10-22] MEDS: Multivitamins, Therapeutic with Minerals Tab PO SCH (13:56)
[2019-10-22] MEDS: Cephalexin 500 MG Cap PO SCH ×3 (13:56→23:24)
[2019-10-22] MEDS: Vitamin B Complex Cap PO SCH (13:56)
[2019-10-22] MEDS: Enoxaparin 30 MG/0.3 ML Syringe SUBCUT SCH (13:57)
[2019-10-22] MEDS: Ferrous Sulfate 325 MG Tab PO SCH (13:57)
[2019-10-22] MEDS: Insulin Lispro 100 Units/ML 3 ML Vial SUBCUT SCH ×3 (13:58→21:41)
[2019-10-22] MEDS: Acetaminophen 325 MG Tab PO SCH ×2 (13:59→20:28)
[2019-10-22] MEDS: Lisinopril 10 MG Tab PO SCH (14:04)
[2019-10-22] MEDS: amLODIPine 5 MG Tab PO SCH (14:04)
[2019-10-22] MEDS: Cholecalciferol (Vitamin D3) 25 MCG Tab PO SCH (20:28)
[2019-10-22] MEDS: atorvaSTATin 20 MG Tab PO SCH (20:28)
[2019-10-23] MEDS: Cephalexin 500 MG Cap PO SCH ×3 (06:10→18:05)
[2019-10-23 06:48] LABS: ANION GAP 14.7 mEq/L (7-13)
[2019-10-23] MEDS: Aspirin 81 MG Tab.Chew PO SCH (08:13)
[2019-10-23] MEDS: Ferrous Sulfate 325 MG Tab PO SCH (08:14)
[2019-10-23] MEDS: INSULIN GLARGINE SUBCUT SCH (08:16)
[2019-10-23] MEDS: Enoxaparin 30 MG/0.3 ML Syringe SUBCUT SCH (08:18)
[2019-10-23] MEDS: Gabapentin 100 MG Cap PO SCH ×2 (08:18→20:43)
[2019-10-23] MEDS: amLODIPine 5 MG Tab PO SCH (08:19)
[2019-10-23] MEDS: Lisinopril 10 MG Tab PO SCH (08:19)
[2019-10-23] MEDS: Acetaminophen 325 MG Tab PO SCH ×3 (08:20→20:42)
[2019-10-23] MEDS: Cyanocobalamin (Vitamin B12) 100 MCG Tab PO SCH (08:20)
[2019-10-23] MEDS: Multivitamins, Therapeutic with Minerals Tab PO SCH (08:20)
[2019-10-23] MEDS: Insulin Lispro 100 Units/ML 3 ML Vial SUBCUT SCH ×4 (08:21→20:51)
[2019-10-23] MEDS ORDERED: Hydrochlorothiazide 25 MG Tab PO SCH (09:00)
[2019-10-23] MEDS: oxyCODONE 5 MG Tab PO PRN (09:13)
--- NOTE | 2019-10-23 10:26 | PCM.PN ---
- General Info Date of Service: 10/23/19 Admission Dx/Problem (Free Text): Admission Diagnosis/Problem Admission Diagnosis/Problem UTI, Urinary tract infectious disease Subjective Update: Still has right hip pain, improved from yesterday Working with PT/OT today - Review of Systems General: Reports: No Symptoms HEENT: Reports: No Symptoms Pulmonary: Reports: No Symptoms Cardiovascular: Reports: No Symptoms Gastrointestinal: Reports: No Symptoms Genitourinary: Reports: No Symptoms Musculoskeletal: Reports: Joint Pain Skin: Reports: No Symptoms Neurological: Reports: No Symptoms Psychiatric: Reports: No Symptoms - Patient Data Vitals - Most Recent: Last Vital Signs Temp 36.6 C 10/23/19 08:03 Pulse 84 10/23/19 08:03 Resp 20 10/23/19 08:03 BP 149/62 H 10/23/19 08:19 Pulse Ox 96 10/23/19 08:03 Weight - Most Recent: 89.857 kg I&O - Last 24 Hours: Intake & Output 10/22/19 10/23/19 10/23/19 22:59 06:59 14:59 Intake Total 1300 250 Balance 1300 250 Lab Results Last 24 Hours: Laboratory Results - last 24 hr 10/22/19 10/22/19 10/22/19 Range/Units 12:18 16:53 20:40 WBC (5.0-10.0) 10^3/uL RBC (4.2-5.4) 10^6/uL Hgb (12.0-16.0) g/dL Hct (37.0-47.0) % MCV (80-100) fL MCH (27.0-34.0) pg MCHC (33.0-35.0) g/dL Plt Count (150-450) 10^3/uL Sodium (136-145) mmol/L Potassium (3.5-5.1) mmol/L Chloride (98-107) mmol/L Carbon Dioxide (21-32) mmol/L Anion Gap (7-13) mEq/L BUN (7-18) mg/dL Creatinine (0.55-1.02) mg/dL Est Cr Clr Drug Dosing mL/min Estimated GFR (MDRD) Glucose (74-99) mg/dL POC Glucose 161 H 133 H 184 H (83-110) mg/dl Calcium (8.5-10.1) mg/dL 10/23/19 10/23/19 10/23/19 Range/Units 06:00 06:00 07:54 WBC 12.7 H (5.0-10.0) 10^3/uL RBC 3.47 L (4.2-5.4) 10^6/uL Hgb 11.0 L (12.0-16.0) g/dL Hct 33.7 L (37.0-47.0) % MCV 97.1 (80-100) fL MCH 31.7 (27.0-34.0) pg MCHC 32.6 L (33.0-35.0) g/dL Plt Count 260 (150-450) 10^3/uL Sodium 135 L (136-145) mmol/L Potassium 4.7 (3.5-5.1) mmol/L Chloride 100 (98-107) mmol/L Carbon Dioxide 25 (21-32) mmol/L Anion Gap 14.7 H (7-13) mEq/L BUN 34 H (7-18) mg/dL Creatinine 1.27 H (0.55-1.02) mg/dL Est Cr Clr Drug Dosing 27.02 mL/min Estimated GFR (MDRD) 40 Glucose 136 H (74-99) mg/dL POC Glucose 133 H (83-110) mg/dl Calcium 9.2 (8.5-10.1) mg/dL Amadou Results Last 24 Hours: Microbiology 10/22/19 07:47 Aerobic Blood Culture - Preliminary Blood NO GROWTH AFTER 1 DAY Anaerobic Blood Culture - Preliminary NO GROWTH AFTER 1 DAY 10/22/19 07:39 Urine Culture - Preliminary Urine, Toure Cath (Indwelling) Med Orders - Current: Current Medications Acetaminophen (Tylenol) 650 mg PO Q4H PRN PRN Reason: Pain (mild 1-3) Acetaminophen (Tylenol) 650 mg PO TID [facility] Last Admin: 10/23/19 08:20 Dose: 650 mg Allopurinol (Zyloprim) 150 mg PO DAILY@1400 [facility] Last Admin: 10/22/19 13:56 Dose: 150 mg Amlodipine Besylate (Norvasc) 5 mg PO DAILY [facility] Last Admin: 10/23/19 08:19 Dose: 5 mg Aspirin (Aspirin) 81 mg PO DAILY [facility] Last Admin: 10/23/19 08:13 Dose: 81 mg Atorvastatin Calcium (Lipitor) 20 mg PO BEDTIME [facility] Last Admin: 10/22/19 20:28 Dose: 20 mg Cephalexin (Keflex) 500 mg PO Q6HR [facility] Stop: 10/27/19 12:01 Last Admin: 10/23/19 06:10 Dose: 500 mg Cholecalciferol (Vitamin D3) 50 mcg PO BEDTIME [facility] Last Admin: 10/22/19 20:28 Dose: 50 mcg Cyanocobalamin (Vitamin B12) 100 mcg PO DAILY [facility] Last Admin: 10/23/19 08:20 Dose: 100 mcg Enoxaparin Sodium (Lovenox) 30 mg SUBCUT DAILY [facility] Last Admin: 10/23/19 08:18 Dose: 30 mg Ferrous Sulfate (Ferrous Sulfate) 325 mg PO DAILY [facility] Last Admin: 10/23/19 08:14 Dose: 325 mg Gabapentin (Neurontin) 100 mg PO BID [facility] Last Admin: 10/23/19 08:18 Dose: 100 mg Hydrochlorothiazide (Hydrochlorothiazide) 25 mg PO Q48H [facility] Last Admin: 10/23/19 08:14 Dose: 25 mg Insulin Glargine (Lantus) 40 unit SUBCUT DAILY [facility] Last Admin: 10/23/19 08:16 Dose: 40 units Insulin Human Lispro (Humalog) 0 unit SUBCUT QIDACANDBED [facility]; Protocol Last Admin: 10/23/19 08:21 Dose: Not Given Lisinopril (Prinivil) 10 mg PO DAILY [facility] Last Admin: 10/23/19 08:19 Dose: 10 mg Multivitamins/Minerals (Vitamins And Minerals) 1 tab PO DAILY [facility] Last Admin: 10/23/19 08:20 Dose: 1 tab Oxycodone HCl (Oxycodone) 5 mg PO Q4H PRN PRN Reason: Pain (severe 7-10) Last Admin: 10/23/19 09:13 Dose: 5 mg Vitamin B Complex (Vitamin B Complex) 1 each PO DAILY@1200 [facility] Last Admin: 10/22/19 13:56 Dose: 1 each - Exam General: Alert, Oriented HEENT: Pupils Equal, Pupils Reactive Neck: Supple Lungs: Clear to Auscultation Cardiovascular: Regular Rate, Regular Rhythm GI/Abdominal Exam: Normal Bowel Sounds, Soft, Non-Tender Extremities: Normal Inspection, Normal Range of Motion, Non-Tender, No Pedal Edema Neurological: No New Focal Deficit Psy/Mental Status: Alert, Normal Affect, Normal Mood Sepsis Event Note - Evaluation Sepsis Screening Result: No Definite Risk - Focused Exam Vital Signs: Vital Signs Temp Pulse Resp BP BP Pulse Ox 10/23/19 08:19 149/62 H 10/23/19 08:03 36.6 C 84 20 149/62 H 96 10/23/19 05:12 36.9 C 10/23/19 04:00 37.6 C 85 20 144/57 H 94 L 10/22/19 23:15 36.7 C 78 20 141/55 H 96 Date Exam was Performed: 10/23/19 Time Exam was Performed: 10:25 - Problem List Review Problem List Initiated/Reviewed/Updated: Yes - My Orders Last 24 Hours: My Active Orders 10/22/19 10:25 Patient Status [ADT] Routine Accu Check [Blood Glucose Check, Bedside] [RC] QIDACANDBED Ambulate [RC] ASDIRECTED Height and Weight [RC] .06 Oxygen Therapy [RC] PRN Up With Assistance [RC] ASDIRECTED VTE/DVT Education [RC] PER UNIT ROUTINE Vital Signs [RC] 00,04,08,12,16,20 OT Evaluation and Treatment [CONS] Routine PT Evaluation and Treatment [CONS] Routine Resuscitation Status Routine 10/22/19 10:34 Acetaminophen [Tylenol] 650 mg PO Q4H PRN 10/22/19 10:35 oxyCODONE 5 mg PO Q4H PRN 10/22/19 11:00 Insulin Lispro [HumaLOG] See Protocol SUBCUT QIDACANDBED 10/22/19 12:00 Enoxaparin [Lovenox] 30 mg SUBCUT DAILY Vitamin B Complex 1 each PO DAILY@1200 cephALEXin [Keflex] 500 mg PO Q6HR 10/22/19 14:00 Acetaminophen [Tylenol] 650 mg PO TID Aspirin 81 mg PO DAILY Cyanocobalamin (Vitamin B12) [Vitamin B12] 100 mcg PO DAILY Ferrous Sulfate 325 mg PO DAILY Gabapentin [Neurontin] 100 mg PO BID Multivitamins/Minerals [Vitamins and Minerals] 1 tab PO DAILY allopurinoL [Zyloprim] 150 mg PO DAILY@1400 amLODIPine [Norvasc] 5 mg PO DAILY lisinopriL [Prinivil] 10 mg PO DAILY 10/22/19 21:00 Cholecalciferol (Vitamin D3) [Vitamin D3] 50 mcg PO BEDTIME atorvaSTATin [Lipitor] 20 mg PO BEDTIME 10/22/19 Lunch Consistent Carbohydrate Diet [DIET] 10/23/19 09:00 Insulin Glarg,Human.Rec.Analog [LantUS] 40 unit SUBCUT DAILY hydroCHLOROthiazide 25 mg PO Q48H 10/23/19 10:01 K Pad [Heat Therapy] [OM.PC] Routine 10/24/19 05:11 BASIC METABOLIC PANEL,BMP [CHEM] AM CBC W/O DIFF,HEMOGRAM [HEME] AM 10/25/19 05:11 BASIC METABOLIC PANEL,BMP [CHEM] AM CBC W/O DIFF,HEMOGRAM [HEME] AM - Plan Plan:: #Right Hip Pain #Right Hip Osteoarthritis #Piriformis syndrome? Hip XR no fracture Pain management PT/OT #UTI #Leucocytosis oral Keflex monitor CBC #CKD Cr 1.4, avoid nephrotoxic agents monitor Cr daily #DM2 ISS, accucheck Continue home insulin regimen, decreased lantus to 40 units HS #HLD continue home meds #DVT ppx SC heparin #Full code
[2019-10-23] MEDS: Vitamin B Complex Cap PO SCH (13:18)
[2019-10-23] MEDS: Allopurinol 300 MG Tab PO SCH (13:19)
[2019-10-23] MEDS: Cholecalciferol (Vitamin D3) 25 MCG Tab PO SCH (20:43)
[2019-10-23] MEDS: atorvaSTATin 20 MG Tab PO SCH (20:43)
[2019-10-23] MEDS ORDERED: Melatonin 3 MG Tab PO SCH (21:00)
[2019-10-23 23:35] VITALS: BP 137/63; PULSE 70
[2019-10-24] MEDS: Cephalexin 500 MG Cap PO SCH ×3 (00:05→13:00)
[2019-10-24] MEDS: Insulin Lispro 100 Units/ML 3 ML Vial SUBCUT SCH ×2 (08:06→12:58)
[2019-10-24] MEDS: Ferrous Sulfate 325 MG Tab PO SCH (08:45)
[2019-10-24] MEDS: Lisinopril 10 MG Tab PO SCH (08:45)
[2019-10-24] MEDS: Enoxaparin 30 MG/0.3 ML Syringe SUBCUT SCH (08:45)
[2019-10-24] MEDS: amLODIPine 5 MG Tab PO SCH (08:46)
[2019-10-24] MEDS: Acetaminophen 325 MG Tab PO SCH ×2 (08:46→12:59)
[2019-10-24] MEDS: Multivitamins, Therapeutic with Minerals Tab PO SCH (08:48)
[2019-10-24] MEDS: oxyCODONE 5 MG Tab PO PRN (08:48)
[2019-10-24] MEDS: Aspirin 81 MG Tab.Chew PO SCH (08:48)
[2019-10-24] MEDS: Gabapentin 100 MG Cap PO SCH (08:48)
[2019-10-24] MEDS: Cyanocobalamin (Vitamin B12) 100 MCG Tab PO SCH (08:48)
[2019-10-24] MEDS: INSULIN GLARGINE SUBCUT SCH (08:49)
--- NOTE | 2019-10-24 10:42 | PCM.DCSUM1 ---
Discharge Summary - Hospital Course Free Text/Narrative:: 88 yo F with PMH of HTN, HLD, DM2, osteoarthritis who presents with right hip pain. Pain is moderate to severe, restricting movement at the hip, worse pain with movement. Ambulatory difficulty. No fever, chest pain, SOB, cough, abdominal pain, nausea or vomiting No saddle anesthesia, no numbness. Has some urine incontinence at baseline and uses adult diapers. Has some dysuria intermittently In the ER, hip XR showed osteoarthritis, no fracture Urinalysis positive for UTI Started on oral Keflex. Urine cx shows E coli, garcia sensitive Patient has a lesion/ulcer on the left labia. Will need to see gynecology for biopsy. Toure placed for perineal ulcer, incontinence Will complete five days of Keflex for UTI Patient worked with PT/OT. Assessment showed piriformis syndrome She was transitioned to swing bed and will continue working with PT/OT. Plan -complete five days of Keflex total -continue working with PT/OT -f/u with PCP, gynecology clinic Diagnosis: Stroke: No - Discharge Data Discharge Date: 10/24/19 Discharge Disposition: DC/Tfer W/I Hosp To Swing Condition: Good - Referral to Home Health Primary Care Physician: Deandre Miller MD - Patient Summary/Data Consults: Consultations 10/22/19 10:25 OT Evaluation and Treatment [CONS] Routine PT Evaluation and Treatment [CONS] Routine - Discharge Plan *PRESCRIPTION DRUG MONITORING PROGRAM REVIEWED*: Not Applicable *COPY OF PRESCRIPTION DRUG MONITORING REPORT IN PATIENT BLAKE: Not Applicable Home Medications: Home Meds Allopurinol [Zyloprim] 150 mg PO 1400 05/02/16 [History] Aspirin 81 mg PO DAILY 05/02/16 [History] Cyanocobalamin (Vitamin B-12) [Vitamin B-12] 100 mcg PO DAILY 05/02/16 [History] Ferrous Sulfate 324 mg PO DAILY 05/02/16 [History] Hydrochlorothiazide 25 mg PO .EVERYOTHERDAY 05/02/16 [History] Multivit-Min/FA/Lycopen/Lutein [Sentry Senior Tablet] 1 tab PO DAILY 05/02/16 [ History] Vitamin B Complex [B Complex] 1 tab PO 1200 05/02/16 [History] amLODIPine Besylate [Amlodipine Besylate] 5 mg PO DAILY 05/02/16 [History] atorvaSTATin Calcium [Atorvastatin Calcium] 20 mg PO BEDTIME 05/02/16 [History] Lisinopril [Prinivil] 10 mg PO DAILY tablet 05/06/16 [Rx] Gabapentin [Neurontin] 100 mg PO BID 06/09/17 [History] Cholecalciferol (Vitamin D3) [Vitamin D3] 2,000 unit PO BEDTIME 10/22/19 [ History] Insulin Glarg,Human.Rec.Analog [Lantus] 64 unit SUBCUT DAILY 10/22/19 [History] Magnesium Oxide [Magnesium] 400 mg PO DAILY 10/22/19 [History] Referrals: Angie Miller MD [Primary Care Provider] - - Discharge Summary/Plan Comment DC Time >30 min.: Yes - General Info Date of Service: 10/24/19 Admission Dx/Problem (Free Text: Admission Diagnosis/Problem Admission Diagnosis/Problem UTI, Urinary tract infectious disease Subjective Update: Still has right hip pain, improved from yesterday Working with PT/OT today - Review of Systems General: Reports: No Symptoms HEENT: Reports: No Symptoms Pulmonary: Reports: No Symptoms Cardiovascular: Reports: No Symptoms Gastrointestinal: Reports: No Symptoms Genitourinary: Reports: Dysuria Musculoskeletal: Reports: No Symptoms Skin: Reports: No Symptoms Neurological: Reports: No Symptoms Psychiatric: Reports: No Symptoms - Patient Data Vitals - Most Recent: Last Vital Signs Temp 36.6 C 10/23/19 19:28 Pulse 70 10/23/19 19:28 Resp 20 10/23/19 19:28 BP 113/42 L 10/24/19 08:46 Pulse Ox 97 10/23/19 19:28 Weight - Most Recent: 89.857 kg I&O - Last 24 hours: Intake & Output 10/23/19 10/24/19 10/24/19 22:59 06:59 14:59 Intake Total 640 Balance 640 Lab Results - Last 24 hrs: Laboratory Results - last 24 hr 10/23/19 10/23/19 10/23/19 Range/Units 11:55 16:50 20:27 WBC (5.0-10.0) 10^3/uL RBC (4.2-5.4) 10^6/uL Hgb (12.0-16.0) g/dL Hct (37.0-47.0) % MCV (80-100) fL MCH (27.0-34.0) pg MCHC (33.0-35.0) g/dL Plt Count (150-450) 10^3/uL Sodium (136-145) mmol/L Potassium (3.5-5.1) mmol/L Chloride (98-107) mmol/L Carbon Dioxide (21-32) mmol/L Anion Gap (7-13) mEq/L BUN (7-18) mg/dL Creatinine (0.55-1.02) mg/dL Est Cr Clr Drug Dosing mL/min Estimated GFR (MDRD) Glucose (74-99) mg/dL POC Glucose 169 H 83 189 H (83-110) mg/dl Calcium (8.5-10.1) mg/dL 10/24/19 10/24/19 10/24/19 Range/Units 06:20 06:20 07:57 WBC 10.1 H (5.0-10.0) 10^3/uL RBC 3.44 L (4.2-5.4) 10^6/uL Hgb 10.9 L (12.0-16.0) g/dL Hct 33.5 L (37.0-47.0) % MCV 97.4 (80-100) fL MCH 31.7 (27.0-34.0) pg MCHC 32.5 L (33.0-35.0) g/dL Plt Count 269 (150-450) 10^3/uL Sodium 134 L (136-145) mmol/L Potassium 4.0 (3.5-5.1) mmol/L Chloride 101 (98-107) mmol/L Carbon Dioxide 24 (21-32) mmol/L Anion Gap 13.0 (7-13) mEq/L BUN 34 H (7-18) mg/dL Creatinine 1.27 H (0.55-1.02) mg/dL Est Cr Clr Drug Dosing 27.02 mL/min Estimated GFR (MDRD) 40 Glucose 123 H (74-99) mg/dL POC Glucose 117 H (83-110) mg/dl Calcium 9.2 (8.5-10.1) mg/dL ALINE Results - Last 24 hrs: Microbiology 10/22/19 07:47 Aerobic Blood Culture - Preliminary Blood NO GROWTH AFTER 2 DAYS Anaerobic Blood Culture - Preliminary NO GROWTH AFTER 2 DAYS 10/22/19 07:39 Urine Culture - Final Urine, Toure Cath (Indwelling) Escherichia Coli Med Orders - Current: Current Medications Acetaminophen (Tylenol) 650 mg PO Q4H PRN PRN Reason: Pain (mild 1-3) Acetaminophen (Tylenol) 650 mg PO TID [facility] Last Admin: 10/24/19 08:46 Dose: 650 mg Allopurinol (Zyloprim) 150 mg PO DAILY@1400 [facility] Last Admin: 10/23/19 13:19 Dose: 150 mg Amlodipine Besylate (Norvasc) 5 mg PO DAILY [facility] Last Admin: 10/24/19 08:46 Dose: 5 mg Aspirin (Aspirin) 81 mg PO DAILY [facility] Last Admin: 10/24/19 08:48 Dose: 81 mg Atorvastatin Calcium (Lipitor) 20 mg PO BEDTIME [facility] Last Admin: 10/23/19 20:43 Dose: 20 mg Cephalexin (Keflex) 500 mg PO Q6HR [facility] Stop: 10/27/19 12:01 Last Admin: 10/24/19 05:41 Dose: 500 mg Cholecalciferol (Vitamin D3) 50 mcg PO BEDTIME [facility] Last Admin: 10/23/19 20:43 Dose: 50 mcg Cyanocobalamin (Vitamin B12) 100 mcg PO DAILY [facility] Last Admin: 10/24/19 08:48 Dose: 100 mcg Enoxaparin Sodium (Lovenox) 30 mg SUBCUT DAILY [facility] Last Admin: 10/24/19 08:45 Dose: 30 mg Ferrous Sulfate (Ferrous Sulfate) 325 mg PO DAILY [facility] Last Admin: 10/24/19 08:45 Dose: 325 mg Gabapentin (Neurontin) 100 mg PO BID [facility] Last Admin: 10/24/19 08:48 Dose: 100 mg Hydrochlorothiazide (Hydrochlorothiazide) 25 mg PO Q48H [facility] Last Admin: 10/23/19 08:14 Dose: 25 mg Insulin Glargine (Lantus) 40 unit SUBCUT DAILY [facility] Last Admin: 10/24/19 08:49 Dose: 40 units Insulin Human Lispro (Humalog) 0 unit SUBCUT QIDACANDBED [facility]; Protocol Last Admin: 10/24/19 08:06 Dose: Not Given Lisinopril (Prinivil) 10 mg PO DAILY [facility] Last Admin: 10/24/19 08:45 Dose: 10 mg Melatonin (Melatonin) 3 mg PO BEDTIME [facility] Last Admin: 10/23/19 20:43 Dose: 3 mg Multivitamins/Minerals (Vitamins And Minerals) 1 tab PO DAILY [facility] Last Admin: 10/24/19 08:48 Dose: 1 tab Oxycodone HCl (Oxycodone) 5 mg PO Q4H PRN PRN Reason: Pain (severe 7-10) Last Admin: 10/24/19 08:48 Dose: 5 mg Vitamin B Complex (Vitamin B Complex) 1 each PO DAILY@1200 [facility] Last Admin: 10/23/19 13:18 Dose: 1 each - Exam General: Reports: Alert, Oriented HEENT: Reports: Pupils Equal, Pupils Reactive Neck: Reports: Supple Lungs: Reports: Clear to Auscultation, Normal Respiratory Effort Cardiovascular: Reports: Regular Rate, Regular Rhythm GI/Abdominal Exam: Normal Bowel Sounds, Soft, Non-Tender Extremities: Other (right hip tenderness) Neurological: Reports: No New Focal Deficit Psy/Mental Status: Reports: Alert, Normal Affect
[2019-10-24] MEDS: Allopurinol 300 MG Tab PO SCH (13:00)
[2019-10-24] MEDS: Vitamin B Complex Cap PO SCH (13:01)
== END 2019-10-24 13:13 | disposition swing bed (61) ==
LOC: DL.ED 07:07 → DL.MS 08:53
PROVIDERS: ADMIT Hospitalist; ATTEND Hospitalist
DX: M16.11 Unilateral primary osteoarthritis, right hip (principal); N39.0 Urinary tract infection, site not specified; B96.20 Unspecified Escherichia coli [E. coli] as the cause of diseases classified elsewhere; E11.22 Type 2 diabetes mellitus with diabetic chronic kidney disease; N18.9 Chronic kidney disease, unspecified; E78.5 Hyperlipidemia, unspecified; I12.9 Hypertensive chronic kidney disease with stage 1 through stage 4 chronic kidney disease, or unspecified chronic kidney disease; E78.00 Pure hypercholesterolemia, unspecified; E66.9 Obesity, unspecified; Z79.82 Long term (current) use of aspirin; Z79.899 Other long term (current) drug therapy; Z68.33 Body mass index [BMI] 33.0-33.9, adult; Z88.8 Allergy status to other drugs, medicaments and biological substances
CPT/HCPCS: 36415; 51702; 73502; 80048; 80053; 81001; 82962; 83605; 85025; 85027; 87040; 87086; 87088; 87186; 96372; 97162; 97166; 99284; 99285; A9270; G0378; J1650; J1815; 99217; 99219; 99225